=== PATIENT | male | born 1945 | race Caucasian/White ===

== ENCOUNTER 2020-04-19 16:33 | Outpatient (CLI) | payer SELFPAY | END 2020-04-19 16:34 | disposition EMS.NT | LOC: EMS 16:33 | PROVIDERS: ATTEND Surgery | DX: Z04.1 Encounter for examination and observation following transport accident (principal); R73.09 Other abnormal glucose; R03.0 Elevated blood-pressure reading, without diagnosis of hypertension ==

== ENCOUNTER 2020-05-30 10:13 | Inpatient (IN) | payer OTHER ==
--- NOTE | 2020-05-30 10:52 | XRAY Report ---
PROCEDURE: Chest 1 View X-Ray INDICATIONS: Chest pain TECHNIQUE: One view of the chest was acquired. COMPARISON: FINDINGS: Surgical changes and devices: None. Lungs and pleura: No pleural effusions or pneumothorax. Lungs are abnormal with a mild pulmonary ed petr pattern versus chronic interstitial prominence (no comparison). Mediastinum: Mediastinal contours appear normal. Heart size is normal. Bones and chest wall: No suspicious bony lesions. Overlying soft tissues appear unremarkable. IMPRESSION: Mild interstitial prominence versus mild pulmonary edema, no sign of cardiomegaly. A definite source of chest pain is not seen but it could be cardiogenic in origin with this appearance. Reviewed by: Alvaro Greco MD on 05/30/2020 10:51 AM [facility] Approved by: Alvaro Greco MD on 05/30/2020 10:51 AM [facility] Station ID: [id number]
[2020-05-30 10:56] LABS: BASOPHILS # (AUTO) 0.1 10^3/uL (0.0-0.1); BASOPHILS % (AUTO) 0.3 %; EOSINOPHILS # (AUTO) 0.1 10^3/uL (0.0-0.7); EOSINOPHILS % (AUTO) 0.8 %; HGB - HEMOGLOBIN 10.9 g/dL (14.0-18.0); LYMPHOCYTES # (AUTO) 0.6 10^3/uL (1.5-3.5); LYMPHOCYTES % (AUTO) 4.1 %; MEAN CORPUSCULAR HEMOGLOBIN 29.6 pg (27.0-31.0); MEAN CORPUSCULAR HGB CONC 31.8 g/dL (32.0-36.0); MEAN CORPUSCULAR VOLUME 93.2 fL (80.0-94.0); MONOCYTES # (AUTO) 0.9 10^3/uL (0.0-1.0); MONOCYTES % (AUTO) 6.2 %; NEUTROPHILS # (AUTO) 13.1 10^3/uL (1.5-6.6); NEUTROPHILS % (AUTO) 87.4 %; PLT - PLATELET COUNT 217 10^3/uL (130-450); RED BLOOD COUNT 3.68 10^6/uL (4.70-6.10); RED CELL DISTRIBUTION WIDTH 13.6 % (12.0-15.0)
[2020-05-30 11:05] LABS: ALBUMIN 2.9 g/dL (3.2-5.5); ALBUMIN/GLOBULIN RATIO 0.8 (1.0-2.2); BILIRUBIN,TOTAL 1.7 mg/dL (0.2-1.0); CALCIUM 9.1 mg/dL (8.5-10.3); CREATININE 1.6 mg/dL (0.6-1.2); TOTAL PROTEIN 6.7 g/dL (6.7-8.2)
[2020-05-30 11:17] LABS: VBG PCO2 39.9 mmHg (41-51); VBG PH 7.409 (7.31-7.41); VBG PO2 23.2 mmHg (25-47)
[2020-05-30 11:18] LABS: VBG BASE EXCESS 0.1 mmol/L (-2 - +2); VBG TOTAL CO2 25.9 mmol/L (24-29)
[2020-05-30] MEDS ORDERED: LACTATED RINGERS 1,000 ML IV ONE (11:56)
[2020-05-30 12:14] LABS: BILIRUBIN,URINE NEGATIVE (NEGATIVE); GLUCOSE, URINE (UA) 500 mg/dL (NEGATIVE); KETONES,URINE (UA) NEGATIVE (NEGATIVE); LEUKOCYTE ESTERASE, URINE NEGATIVE (NEGATIVE); NITRITE,URINE NEGATIVE (NEGATIVE); OCCULT BLOOD,URINE TRACE-LYSE (NEGATIVE); PROTEIN,URINE >=300 mg/dL (NEGATIVE); UROBILINOGEN,URINE 4 E.U./dL (NORMAL)
[2020-05-30 12:29] LABS: CLARITY,URINE CLEAR (CLEAR)
[2020-05-30 12:42] LABS: BACTERIA,URINE None Seen /HPF (None Seen); RBC,URINE 0-5 /HPF (0-5); SQUAMOUS EPITHELIAL CELL,UR NONE SEEN (<= Few)
[2020-05-30] MEDS ORDERED: cefTRIAXone 1 GM in SODIUM CHLORIDE 0.9% MINIBAG 100 ML IV STA (12:59)
[2020-05-30] MEDS ORDERED: LACTATED RINGERS IV STA (13:00)
--- NOTE | 2020-05-30 13:04 | ED Physician Documentation ---
History of Present Illness - Stated complaint Stated Complaint: SOA/WEAKNESS - Chief complaint Chief Complaint: General - History obtained from History obtained from: Patient - Additonal information Additional information: 74-year-old man with past medical history of diabetes high blood pressure hyperlipidemia presents with shortness of breath, weakness, myalgia, dry cough, decreased appetite for 1 week after getting the shingles vaccine. He states that he was diagnosed with UTI during that. And took a 5-day course that he stopped yesterday because he was feeling so lightheaded and thought that the antibiotics are causing it.At present he denies fever sore throat chest pain palpitations or leg swelling. Review of Systems Constitutional: reports: Myalgias, Fatigue, Weight Loss. denies: Fever, Chills Respiratory: reports: Dyspnea, Cough GI: denies: Abdominal Pain, Nausea : reports: Frequency PD PAST MEDICAL HISTORY - Past Medical History Past Medical History: Yes Cardiovascular: None, Congestive heart failure, Hypertension, Murmur Respiratory: None Neuro: None Endocrine/Autoimmune: Type 2 diabetes GI: None : None, Benign prostate hypertrophy, Renal insuffiency HEENT: Chronic vision loss Psych: None Musculoskeletal: None Derm: None - Past Surgical History Past Surgical History: No - Present Medications Home Medications: Ambulatory Orders Medication Instructions Recorded Confirmed Amlodipine Besylate [Norvasc] 2.5 mg PO DAILY 05/30/20 05/30/20 Aspirin [Aspirin EC] 81 mg PO DAILY 05/30/20 05/30/20 Atenolol [Tenormin] 100 mg PO DAILY 05/30/20 05/30/20 Atorvastatin Calcium [Lipitor] 80 mg PO QPM 05/30/20 05/30/20 Bupropion HCl [Wellbutrin Xl] 300 mg PO DAILY 05/30/20 05/30/20 Cholecalciferol [Vitamin D3] 50 mcg PO DAILY 05/30/20 05/30/20 Furosemide [Lasix] 20 mg PO DAILY 05/30/20 05/30/20 Gabapentin [Neurontin] 1,200 mg PO QPM 05/30/20 05/30/20 Glipizide 10 mg PO BID 05/30/20 05/30/20 HYDROcod/ACETAM 5/325 [[place] 5/325] 1 tab PO TID 05/30/20 05/30/20 Loratadine [Claritin] 10 mg PO DAILY 05/30/20 05/30/20 Losartan Potassium 25 mg PO DAILY 05/30/20 05/30/20 Multivitamin 1 tab PO DAILY 05/30/20 05/30/20 Sildenafil Citrate [Viagra] 50 mg PO PRN PRN 05/30/20 05/30/20 metFORMIN [Glucophage] 1,000 mg PO BID 05/30/20 05/30/20 - Allergies Allergies/Adverse Reactions: Allergies Allergy/AdvReac Type Severity Reaction Status Date / Time Penicillins Allergy Rash Verified 05/30/20 10:31 - Social History Does the pt smoke?: No Smoking Status: Never smoker Does the pt drink ETOH?: No Does the pt have substance abuse?: No - Immunizations Immunizations are current?: Yes - POLST Patient has POLST: No PD ED PE NORMAL - Vitals Vital signs reviewed: Yes - General General: Alert and oriented X 3 - HEENT HEENT: Atraumatic, PERRL, EOMI - Neck Neck: Supple, no meningeal sign - Cardiac Cardiac: RRR, Other (loud systolic murmur) - Respiratory Respiratory: No respiratory distress, Clear bilaterally - Abdomen Abdomen: Non tender, Non distended - Male Male : Deferred - Rectal Rectal: Deferred - Back Back: No CVA TTP - Derm Derm: Normal color - Extremities Extremities: No deformity - Neuro Neuro: Alert and oriented X 3 - Psych Psych: Normal mood, Normal affect Results - Vitals Vitals: Vital Signs - 24 hr 05/30/20 05/30/20 10:25 12:29 Temperature 36.3 C L Heart Rate 61 58 L Respiratory 22 22 Rate Blood Pressure 111/61 119/90 H O2 Saturation 98 96 Oxygen O2 Source Room air - Labs Labs: Laboratory Tests 05/30/20 05/30/20 05/30/20 10:45 10:45 10:45 WBC 15.0 H RBC 3.68 L Hgb 10.9 L Hct 34.3 L MCV 93.2 MCH 29.6 MCHC 31.8 L RDW 13.6 Plt Count 217 MPV 11.0 Neut # (Auto) 13.1 H Lymph # (Auto) 0.6 L Bledsoe # (Auto) 0.9 Eos # (Auto) 0.1 Baso # (Auto) 0.1 Absolute Nucleated RBC 0.00 Nucleated RBC % 0.0 VBG pH VBG pCO2 VBG pO2 VBG HCO3 VBG Total CO2 VBG O2 Saturation VBG Base Excess Sodium 131 L Potassium 4.1 Chloride 95 L Carbon Dioxide 23 Anion Gap 13.0 BUN 41 H Creatinine 1.6 H Estimated GFR (MDRD) 43 L Glucose 404 H Lactic Acid Calcium 9.1 Total Bilirubin 1.7 H AST 23 ALT 16 Alkaline Phosphatase 77 Troponin I High Sens 49.3 H* Total Protein 6.7 Albumin 2.9 L Globulin 3.8 Albumin/Globulin Ratio 0.8 L Lipase 91 H Urine Color Urine Clarity Urine pH Ur Specific [place] Urine Protein Urine Glucose (UA) Urine Ketones Urine Occult Blood Urine Nitrite Urine Bilirubin Urine Urobilinogen Ur Leukocyte Esterase Urine RBC Urine WBC Ur Squamous Epith Cells Urine Bacteria Ur Microscopic Review Urine Culture Comments Nasal Adenovirus (PCR) Nasal B. parapertussis DNA (PCR) Nasal Coronavir 229E PCR Nasal Coronavir HKU1 PCR Nasal Coronavir NL63 PCR Nasal Coronavir OC43 PCR Nasal Enterovir/Rhinovir PCR Nasal Influenza B PCR Nasal Influenza A PCR Nasal Parainfluen 1 PCR Nasal Parainfluen 2 PCR Nasal Parainfluen 3 PCR Nasal Parainfluen 4 PCR Nasal RSV (PCR) Nasal B.pertussis DNA PCR Nasal C.pneumoniae (PCR) Gian Human Metapneumo PCR Nasal M.pneumoniae (PCR) Nasal SARS-CoV-2 (PCR) 05/30/20 05/30/20 05/30/20 11:11 11:45 11:45 WBC RBC Hgb Hct MCV MCH MCHC RDW Plt Count MPV Neut # (Auto) Lymph # (Auto) Bledsoe # (Auto) Eos # (Auto) Baso # (Auto) Absolute Nucleated RBC Nucleated RBC % VBG pH 7.409 VBG pCO2 39.9 L VBG pO2 23.2 L VBG HCO3 24.7 VBG Total CO2 25.9 VBG O2 Saturation 45.1 L VBG Base Excess 0.1 Sodium Potassium Chloride Carbon Dioxide Anion Gap BUN Creatinine Estimated GFR (MDRD) Glucose Lactic Acid Calcium Total Bilirubin AST ALT Alkaline Phosphatase Troponin I High Sens Total Protein Albumin Globulin Albumin/Globulin Ratio Lipase Urine Color YELLOW Urine Clarity CLEAR Urine pH 6.0 Ur Specific [place] 1.020 Urine Protein >=300 H Urine Glucose (UA) 500 H Urine Ketones NEGATIVE Urine Occult Blood TRACE-LYSE Urine Nitrite NEGATIVE Urine Bilirubin NEGATIVE Urine Urobilinogen 4 H Ur Leukocyte Esterase NEGATIVE Urine RBC 0-5 Urine WBC 6-10 H Ur Squamous Epith Cells NONE SEEN Urine Bacteria None Seen Ur Microscopic Review INDICATED Urine Culture Comments INDICATED Nasal Adenovirus (PCR) NOT DETECTED Nasal B. parapertussis DNA (PCR) NOT DETECTED Nasal Coronavir 229E PCR NOT DETECTED Nasal Coronavir HKU1 PCR NOT DETECTED Nasal Coronavir NL63 PCR NOT DETECTED Nasal Coronavir OC43 PCR NOT DETECTED Nasal Enterovir/Rhinovir PCR NOT DETECTED Nasal Influenza B PCR NOT DETECTED Nasal Influenza A PCR NOT DETECTED Nasal Parainfluen 1 PCR NOT DETECTED Nasal Parainfluen 2 PCR NOT DETECTED Nasal Parainfluen 3 PCR NOT DETECTED Nasal Parainfluen 4 PCR NOT DETECTED Nasal RSV (PCR) NOT DETECTED Nasal B.pertussis DNA PCR NOT DETECTED Nasal C.pneumoniae (PCR) NOT DETECTED Gian Human Metapneumo PCR NOT DETECTED Nasal M.pneumoniae (PCR) NOT DETECTED Nasal SARS-CoV-2 (PCR) NOT DETECTED 05/30/20 13:31 WBC RBC Hgb Hct MCV MCH MCHC RDW Plt Count MPV Neut # (Auto) Lymph # (Auto) Bledso[place] # (Auto) Eos # (Auto) Baso # (Auto) Absolute Nucleated RBC Nucleated RBC % VBG pH VBG pCO2 VBG pO2 VBG HCO3 VBG Total CO2 VBG O2 Saturation VBG Base Excess Sodium Potassium Chloride Carbon Dioxide Anion Gap BUN Creatinine Estimated GFR (MDRD) Glucose Lactic Acid 1.6 Calcium Total Bilirubin AST ALT Alkaline Phosphatase Troponin I High Sens Total Protein Albumin Globulin Albumin/Globulin Ratio Lipase Urine Color Urine Clarity Urine pH Ur Specific [place] Urine Protein Urine Glucose (UA) Urine Ketones Urine Occult Blood Urine Nitrite Urine Bilirubin Urine Urobilinogen Ur Leukocyte Esterase Urine RBC Urine WBC Ur Squamous Epith Cells Urine Bacteria Ur Microscopic Review Urine Culture Comments Nasal Adenovirus (PCR) Nasal B. parapertussis DNA (PCR) Nasal Coronavir 229E PCR Nasal Coronavir HKU1 PCR Nasal Coronavir NL63 PCR Nasal Coronavir OC43 PCR Nasal Enterovir/Rhinovir PCR Nasal Influenza B PCR Nasal Influenza A PCR Nasal Parainfluen 1 PCR Nasal Parainfluen 2 PCR Nasal Parainfluen 3 PCR Nasal Parainfluen 4 PCR Nasal RSV (PCR) Nasal B.pertussis DNA PCR Nasal C.pneumoniae (PCR) Gian Human Metapneumo PCR Nasal M.pneumoniae (PCR) Nasal SARS-CoV-2 (PCR) PD MEDICAL DECISION MAKING - ED course Complexity details: reviewed results, d/w patient, d/w technology consultant ED course: 74-year-old man presents with multiple nonspecific symptoms status post treatment for UTI this week. He is mildly tachypneic with an elevated white count. Sepsis time of onset was upon receipt of urine specimen when source was identified. Patient was treated for sepsis/UTI refractory to outpatient antibiotics with AKIdiscussed with hospitalist who will admit patient for further evaluation. Departure - Departure Disposition: [facility] DC/Xfer Clinical Impression: Sepsis, Urinary tract infection, MARCELA (acute kidney injury), Elevated troponin, Heart murmur, Dizziness Condition: Stable Discharge Date/Time: 05/30/20 15:05
[2020-05-30 13:05] LABS: C. PNEUMONIAE- RESP PCR PANEL NOT DETECTED
[2020-05-30] MEDS ORDERED: SODIUM CHLORIDE FLUSH 0.9% 10 ML SYRINGE IVP PRN (14:20)
[2020-05-30] MEDS ORDERED: ONDANSETRON 4 MG/2 ML VIAL IVP PRN (14:20)
[2020-05-30] MEDS ORDERED: ACETAMINOPHEN 325 MG TABLET PO PRN (14:20)
--- NOTE | 2020-05-30 14:28 | HISTORY & PHYSICAL EXAMINATION ---
Chief Complaint - Chief Complaint Chief Complaint: SOB History of Present Illness - Admitted From Admitted From:: ER - History Obtained From Records Reviewed: [facility] History obtained from: pt Exam Limitations: no - History of Present Illness HPI Comment/Other: This is a 74-years old male with a past medical history of CHF, hypertension, heart murmur, diabetic 2, BPH, CKD, chronic vision loss, present ER complain of increased weakness, chest pain and urination burning sensation. Patient reported he went to see his PCP in [place], the [place] physician called patient go to the hospital. Patient reported he still feel some urination burning sensation even after the treated with antibiotics for his UTI.Patient also report he feel chest pressure, and feel shortness of breathing. Pt report after having a shingles shot about one week ago, you felt weakness, loss of appetite, loss of strength in the home and laying in the bed not much drinking and eating. He denies fever, chill, Abdominal pain, nausea, vomiting, diarrhea. Routine laboratory tests that show patient had elevated WBC at 15, elevated troponin 49, Repeat troponin 44, Creatinine 1.6, Sodium 131, Glucose is over 400. Chest x-ray show mild interstitial prominence versus mild pulmonary edema and no sign of cardiomegaly. Discussed the care goal with the patient, patient requested full code History - Past Medical History Cardiovascular: reports: None, Congestive heart failure, Hypertension, Murmur Respiratory: reports: None Neuro: reports: None Endocrine/Autoimmune: reports: Type 2 diabetes GI: reports: None : reports: None, Benign prostate hypertrophy, Renal insuffiency HEENT: reports: Chronic vision loss Psych: reports: None Musculoskeletal: reports: None Derm: reports: None MRSA Hx?: No - Family & Social History Family History: Mother: , Father: Family History Comment/Other: Patient reported his father at age 82 from cancer. Her mother at age 97 from heart complications. Social History Notes: He is living with his at [place], he denies cigarette smoking, alcohol and drug binge - POLST Patient has POLST: No Meds/Allgy - Home Medications Home Medications: Ambulatory Orders Medication Instructions Recorded Confirmed Amlodipine Besylate [Norvasc] 2.5 mg PO DAILY 05/30/20 05/30/20 Aspirin [Aspirin EC] 81 mg PO DAILY 05/30/20 05/30/20 Atenolol [Tenormin] 100 mg PO DAILY 05/30/20 05/30/20 Atorvastatin Calcium [Lipitor] 80 mg PO QPM 05/30/20 05/30/20 Bupropion HCl [Wellbutrin Xl] 300 mg PO DAILY 05/30/20 05/30/20 Cholecalciferol [Vitamin D3] 50 mcg PO DAILY 05/30/20 05/30/20 Furosemide [Lasix] 20 mg PO DAILY 05/30/20 05/30/20 Gabapentin [Neurontin] 1,200 mg PO QPM 05/30/20 05/30/20 Glipizide 10 mg PO BID 05/30/20 05/30/20 HYDROcod/ACETAM 5/325 [[place] 5/325] 1 tab PO TID 05/30/20 05/30/20 Loratadine [Claritin] 10 mg PO DAILY 05/30/20 05/30/20 Losartan Potassium 25 mg PO DAILY 05/30/20 05/30/20 Multivitamin 1 tab PO DAILY 05/30/20 05/30/20 Sildenafil Citrate [Viagra] 50 mg PO PRN PRN 05/30/20 05/30/20 metFORMIN [Glucophage] 1,000 mg PO BID 05/30/20 05/30/20 - Allergies Allergies/Adverse Reactions: Allergies Allergy/AdvReac Type Severity Reaction Status Date / Time Penicillins Allergy Rash Verified 05/30/20 10:31 Review of Systems - Constitutional Constitutional: reports: Fatigue, Weakness, Poor appetite. denies: Fever, Ch ills, Malaise, Diaphoresis, Night sweats - Eyes Eyes: denies: Pain, Blurred vision, Field loss, Vision loss, Dipolpia - Ears, Nose & Throat Ears, Nose & Throat: denies: Ear pain, Vertigo, Nosebleeds, Sore throat, Bleeding gums - Cardiovascular Cariovascular: reports: Chest pain, Decr. exercise tolerance. denies: Irregular heart rate, Palpitations, Edema, Lightheadedness, Syncope, Exertional dyspnea - Respiratory Respiratory: reports: SOB with exertion. denies: Cough, Sputum production, Wheezing, Snoring, Hemoptysis, Orthopnea, SOB at rest - Gastrointestinal Gastrointestinal: denies: Abdominal pain, Diarrhea, Rectal bleeding, Black stools, Bloody stools, Nausea, Vomiting, [place] blood emesis - Genitourinary Genitourinary: reports: Dysuria, Urgency, Incontinence. denies: Hematuria, Flank pain - Musculoskeletal Musculoskeletal: denies: Muscle pain, Muscle aches, Limited range of motion - Integumentary Integumentary: denies: Rash, Lesions, Lumps - Neurological Neurological: reports: General weakness. denies: Focal weakness, Headache, Dizziness, Numbness, Memory problems, Pre-existing deficit, Abnormal gait, Seizures, Incoordination, Slurred speech - Psychiatric Psychiatric: denies: Depression, Suicidal, Delusions, Hallucinations, Homicidal - Endocrine Endocrine: denies: Polyuria, Polydypsia - Hematologic/Lymphatic Hematologic/Lymphatic: denies: Anemia, Lymphadenopathy Exam - Vital Signs Vital Signs: Vital Signs x48h Temp Pulse Resp BP Pulse Ox 05/30/20 12:29 58 L 22 119/90 H 96 05/30/20 10:25 36.3 C L 61 22 111/61 98 - Physical Exam General Appearance: positive: No acute distress, Alert. negative: Lethargic Eyes Bilateral: positive: Normal inspection, PERRL, No lid inflammation ENT: positive: ENT inspection nml, No signs of dehydration. negative: Purulent nasal drainage Neck: positive: Nml inspection, Thyroid nml, Trachea midline. negative: Thyromegaly, Tracheal deviation Respiratory: positive: Chest non-tender, No respiratory distress, Breath sounds nml. negative: Wheezes, Rales, Rhonchi Cardiovascular: positive: Regular rate & rhythm, Systolic murmur, Diastolic murmur. negative: No murmur, Tachycardia, Bradycardia Peripheral Pulses: positive: 2+ Abdomen: positive: Non-tender, Nml bowel sounds, No distention. negative: Tenderness, Guarding, Rebound Back: positive: Nml inspection Skin: positive: Color nml, Warm, Dry. negative: Cyanosis, Diaphoresis, Pallor Extremities: positive: Non-tender, Full ROM, Nml appearance. negative: Calf tenderness Neurologic/Psychiatric: positive: Oriented x3, Motor nml, Sensation nml, Mood/affect nml. negative: Weakness, Sensory loss, Facial droop, Slurred/abnml speech, Depressed mood/affect Conclusion/Plan - Problem List (1) Chest pressure Conclusion/Plan: Patient reported chest pressure, shortness of breathing, slightly elevated tr oponin with repeated, but EKG show ST depression at V4, V5, V6, I and III. we do not have pt previous EKG compare. Plan: Aspirin, resume home Lipitor, Atenolol. ECHO study, and stress test on tomorrow. tele, repeat EKG on tomorrow, continue check troponin. (2) Heart murmur Conclusion/Plan: Patient had aloud systolic and diastolic murmur, patient reported he had no continuous still operator tp be seen before. We will have echo for patient, will follow up, Continue telemetry and vital signs monitor patient closely (3) UTI (urinary tract infection) Conclusion/Plan: Patient reported he was treated with UTI for few days but he still complain irritable urinary burning sensation, and urgency and urine hesitancy, and Difficulty urination. ER already treated with Rocephin, will continue, will continue to follow urine culture, start with Flomax (4) MARCELA (acute kidney injury) Conclusion/Plan: Patient reported he does not know he have chronic kidney disease, today's creatinine is 1.6, clinically he show dehydration, Patient also reported he did not drink or eating much recently. we will give patient IVF hydration, follow-up with veterinarian laboratory animal care (5) Diabetes Conclusion/Plan: Patient Glucose level was over 400 in the ER, has history of diabetic, patient did not take insulin at home, will start with sliding scale, follow-up check A1c, continue hypoglycemia protocol (6) HTN (hypertension) Conclusion/Plan: Patient take amlodipine, losartan and Atenolol in the home, we resume his home Atenolol now, We will closely monitor patient blood vital signs, and resume other blood pressure medicine as needed (7) Hyponatremia Conclusion/Plan: Patient sodium is 131, Patient did not drink or eating much recently. it is likely hypovelmic hyponatremia, ER already give patient one liter of normal saline, will continue gently hydration for pt, continue lab monitor. - Lab Results Fish Bones: 05/30/20 10:45 05/30/20 10:45 Core Measures - Anticipated LOS I expect patient to be DC'd or transferred within 96 hours.: Yes - DVT/VTE - Prophylaxis VTE/DVT Device ordered at admit?: Yes VTE/DVT Prophylaxis med ordered at admit?: Yes
--- NOTE | 2020-05-30 16:05 | PHARMACY PROGRESS NOTE ---
- Best Possible Medication History Admit Date and Time: 05/30/20 1420 Processed by: Pharmacy Medication History completed: Yes Patient Interview: Completed Secondary Source(s): Written medication list (PATIENT INTERVIEWED BY PHARMACY. PATIENT PROVIDED PARTIAL LIST OF MEDICATIONS. PATIENT FILLS MEDICATIONS AT [place]. [place] CALLED AND CONFIRMED HOME MEDICATIONS ), Physician records, Pharmacy records As the person ultimately responsible for medication therapy, providers are able to order a medication from an existing home medication list in [facility] via the "Reconcile Routine" prior to Confirmation of that medication by learning support aide. Such practice is discouraged except when the physician, in their clinical judgment, deems that a medical need exists for a medication without regard to previous use.
[2020-05-30] MEDS: HYDROcod/ACETAM 5/325 MG TABLET PO SCH ×3 (16:45→21:13)
[2020-05-30] MEDS: INSULIN ASPART 300 UNIT/3 ML PEN SUBQ SCH ×2 (16:45→21:17)
[2020-05-30] MEDS: SODIUM CHLORIDE FLUSH 0.9% 10 ML SYRINGE IVP SCH (16:46)
[2020-05-30] MEDS ORDERED: ASPIRIN 325 MG TABLET PO STA (16:54)
[2020-05-30] MEDS ORDERED: ASPIRIN EC 81 MG TABLET PO SCH (16:54)
[2020-05-30] MEDS: SODIUM CHLORIDE 0.9% 1,000 ML IV SCH (17:57)
[2020-05-30] MEDS ORDERED: INSULIN GLARGINE 300 UNIT/3 ML PEN SUBQ SCH (21:00)
[2020-05-30] MEDS: GABAPENTIN 400 MG CAPSULE PO SCH (21:11)
[2020-05-30] MEDS: ATORVASTATIN 40 MG TABLET PO SCH (21:11)
[2020-05-30] MEDS: HEPARIN 5,000 UNIT/ML VIAL SUBQ SCH (21:15)
[2020-05-30] MEDS ORDERED: BENZOCAINE/MENTHOL LOZENGE MM PRN (23:43)
[2020-05-31] MEDS: SODIUM CHLORIDE FLUSH 0.9% 10 ML SYRINGE IVP SCH ×3 (05:28→17:00)
[2020-05-31 05:54] LABS: BASOPHILS # (AUTO) 0.1 10^3/uL (0.0-0.1); BASOPHILS % (AUTO) 0.5 %; EOSINOPHILS # (AUTO) 0.4 10^3/uL (0.0-0.7); EOSINOPHILS % (AUTO) 3.4 %; HGB - HEMOGLOBIN 10.1 g/dL (14.0-18.0); LYMPHOCYTES % (AUTO) 9.3 %; MEAN CORPUSCULAR HEMOGLOBIN 29.2 pg (27.0-31.0); MEAN CORPUSCULAR VOLUME 94.2 fL (80.0-94.0); MEAN PLATELET VOLUME 11.4 fL (7.4-11.4); MONOCYTES # (AUTO) 0.7 10^3/uL (0.0-1.0); MONOCYTES % (AUTO) 6.9 %; NEUTROPHILS # (AUTO) 8.4 10^3/uL (1.5-6.6); PLT - PLATELET COUNT 202 10^3/uL (130-450); RED BLOOD COUNT 3.46 10^6/uL (4.70-6.10); RED CELL DISTRIBUTION WIDTH 13.4 % (12.0-15.0); WHITE BLOOD COUNT 10.7 x10^3/uL (4.8-10.8)
[2020-05-31] MEDS: PANTOPRAZOLE 40 MG TABLET PO SCH (06:00)
[2020-05-31] MEDS: SODIUM CHLORIDE 0.9% 1,000 ML IV SCH (06:00)
[2020-05-31] MEDS: HYDROcod/ACETAM 5/325 MG TABLET PO SCH ×3 (06:00→21:04)
[2020-05-31 06:10] LABS: ALBUMIN 2.7 g/dL (3.2-5.5); ALBUMIN/GLOBULIN RATIO 0.8 (1.0-2.2); BILIRUBIN,TOTAL 1.4 mg/dL (0.2-1.0); CALCIUM 8.7 mg/dL (8.5-10.3); CREATININE 1.5 mg/dL (0.6-1.2); MAGNESIUM 1.8 mg/dL (1.7-2.8); TOTAL PROTEIN 6.1 g/dL (6.7-8.2)
[2020-05-31 06:14] LABS: CHOL/HDL RATIO 6.2 (<5.0); CHOLESTEROL 99 mg/dL; HDL CHOLESTEROL 16 mg/dL; LDL CHOLESTEROL,CALCULATED 55 mg/dL; LDL/HDL RATIO 3.4 (<3.6); VLDL CHOLESTEROL 28 mg/dL
[2020-05-31] MEDS ORDERED: INSULIN ASPART 300 UNIT/3 ML PEN SUBQ SCH (08:00)
[2020-05-31] MEDS ORDERED: ASPIRIN EC 81 MG TABLET PO SCH (09:00)
[2020-05-31] MEDS: buPROPion XL 150 MG TABLET PO SCH (10:30)
[2020-05-31] MEDS: atenoloL 25 MG TABLET PO SCH (10:30)
[2020-05-31] MEDS: INSULIN GLARGINE 300 UNIT/3 ML PEN SUBQ SCH ×2 (10:30→21:05)
[2020-05-31] MEDS: ASPIRIN EC 81 MG TABLET PO SCH (10:30)
[2020-05-31] MEDS: cefTRIAXone 1 GM in SODIUM CHLORIDE 0.9% MINIBAG 100 ML IV SCH (10:31)
[2020-05-31] MEDS: TAMSULOSIN 0.4 MG CAPSULE PO SCH (10:31)
[2020-05-31] MEDS: HEPARIN 5,000 UNIT/ML VIAL SUBQ SCH ×2 (10:35→21:05)
[2020-05-31] MEDS ORDERED: INSULIN ASPART 300 UNIT/3 ML PEN SUBQ ONE ×2 (11:03→17:05)
--- NOTE | 2020-05-31 11:43 | XRAY Report ---
PROCEDURE: Chest 1 View X-Ray INDICATIONS: sob TECHNIQUE: One view of the chest was acquired. COMPARISON: None FINDINGS: Surgical changes and devices: None. Lungs and pleura: Diffuse bilateral and perihilar increased interstitial opacities are seen, increas ed compared to the prior study on 05/30/2020. No focal consolidation or mass. No pleural effusions or pneumothorax. Lungs are clear. Mediastinum: Mediastinal contours appear normal. Heart size is normal. Bones and chest wall: No suspicious bony lesions. Overlying soft tissues appear unremarkable. IMPRESSION: Diffuse bilateral and perihilar increased interstitial opacities, increased compared to 05/30/2020. Wh ile this could be due to differences in technique, consider pulmonary edema or a diffuse infectious p rocess. Reviewed by: Zacarias Greenberg on 05/31/2020 11:41 AM PST Approved by: Zacarias Greenberg on 05/31/2020 11:41 AM PST Station ID: [id number]
[2020-05-31] MEDS: INSULIN ASPART 300 UNIT/3 ML PEN SUBQ SCH ×3 (14:17→21:06)
--- NOTE | 2020-05-31 14:23 | PROVIDER PROGRESS NOTE ---
Assessment/Plan - Problem List (1) Chest pressure Assessment/Plan: 05/31 Patient reported he feel better today, denies chest pain or chest pressure. his troponin treaded down from 49 to 36. unfortunately our hospital device can not do stress on today, plan do on tomorrow. continue Aspirin, resume home Lipi tor, Atenolol. Patient reported chest pressure, shortness of breathing, slightly elevated troponin with repeated, but EKG show ST depression at V4, V5, V6, I and III. we do not have pt previous EKG compare. Plan: Aspirin, resume home Lipitor, Atenolol. ECHO study, and stress test on tomorrow. tele, repeat EKG on tomorrow, continue check troponin. (2) Heart murmur Conclusion/Plan: 05/31 ECHO reveals reserved EF with Moderate concentric left ventricular hyp ertrophy, There is moderate to severe aortic sclerosis, aortic valve area could not be calculated due to left ventricular outflow tract obstruction. Moderate mitral regurgitation, Severe abnormal right heart pressure, RVSP at the rest is 104 mmHg. Patient had aloud systolic and diastolic murmur, patient reported he had no virtualization consultant tp be seen before. We will have echo for patient, will follow up, Continue telemetry and vital signs monitor patient closely (3)[facility] ECHO reveals reserved EF with Moderate concentric left ventricular hypertrophy, left Ventricular outflow track gradient without valsalva Max 56mmHG. Update recommend beta ileana and verapamil, calcium channel ileana. will continue home Metoprolol, continue vial and tele monitor. (4)pulmonary hypertension ECHO reveal RVSP 104mmHG, severe Pulmonary hypertension, resume home Viagra, followup with his virtualization consultant (5) UTI (urinary tract infection) Conclusion/Plan: Patient reported he was treated with UTI for few days but he still complain irritable urinary burning sensation, and urgency and urine hesitancy, and Difficulty urination. ER already treated with Rocephin, will continue, will continue to follow urine culture, start with Flomax (6) CKD Conclusion/Plan: 05/31 stable, creatinine is 1.5 today Patient reported he does not know he have chronic kidney disease, today's creatinine is 1.6, clinically he show dehydration, Patient also reported he did not drink or eating much recently. we will give patient IVF hydration, follow-up with dental laboratory technician apprentice (7) Diabetes uncontrolled Conclusion/Plan: 05/31 Patient's A1c is 11, patient did not take insulin in the home, we will increase his Lantus and a sliding scale. when patient is d/c, he is likely needed with insulin. Patient Glucose level was over 400 in the ER, has history of diabetic, patient did not take insulin at home, will start with sliding scale, follow-up check A1c, continue hypoglycemia protocol (8) HTN (hypertension) Conclusion/Plan: Patient take amlodipine, losartan and Atenolol in the home, we resume his home Atenolol now, We will closely monitor patient blood vital signs, and resume other blood pressure medicine as needed (9) Hyponatremia Conclusion/Plan: 05/31 resolved. Patient sodium is 131, Patient did not drink or eating much recently. it is likely hypovelmic hyponatremia, ER already give patient one liter of normal saline, will continue gently hydration for pt, continue lab monitor. - Current Meds Current Meds: Current Medications Generic Name Dose Route Start Last Admin Trade Name Freq PRN Reason Stop Dose Admin Hydrocodone Bitart/Acetaminophen 1 tab 05/30/20 17:00 05/31/20 06:00 Hydrocod/Acetam 5/325 Mg Tablet PO 1 tab TID MILA Administration Aspirin 81 mg 05/31/20 09:00 05/31/20 10:30 Aspirin Ec 81 Mg Tablet PO 81 mg DAILY MILA Administration Atenolol 100 mg 05/31/20 09:00 05/31/20 10:30 Atenolol 25 Mg Tablet PO 100 mg DAILY MILA Administration Atorvastatin Calcium 80 mg 05/30/20 21:00 05/30/20 21:11 Atorvastatin 40 Mg Tablet PO 80 mg QPM MILA Administration Bupropion HCl 300 mg 05/31/20 09:00 05/31/20 10:30 Bupropion Xl 150 Mg Tablet PO 300 mg DAILY MILA Administration Gabapentin 1,200 mg 05/30/20 21:00 05/30/20 21:11 Gabapentin 400 Mg Capsule PO 1,200 mg QPM MILA Administration Heparin Sodium (Porcine) 5,000 unit 05/30/20 21:00 05/31/20 10:35 Heparin 5,000 Unit/Ml Vial SUBQ 5,000 unit BID MILA Administration Ceftriaxone Sodium 1 gm/ 100 mls @ 200 mls/hr 05/31/20 09:00 05/31/20 11:01 Sodium Chloride IV Infused DAILY MILA Infusion Insulin Aspart 2 - 10 unit 05/31/20 12:00 05/31/20 14:17 Insulin Aspart 300 Unit/3 Ml Pen SUBQ Not Given 0800,1200,1700,2100 MILA Protocol Insulin Glargine 5 unit 05/31/20 08:00 05/31/20 10:30 Insulin Glargine 300 Unit/3 Ml Pen SUBQ 5 unit QDBREAKFAST MILA Administration Pantoprazole Sodium 40 mg 05/31/20 07:00 05/31/20 06:00 Pantoprazole 40 Mg Tablet PO 40 mg QDAC MILA Administration Sodium Chloride 10 ml 05/30/20 17:00 05/31/20 10:31 Sodium Chloride Flush 0.9% 10 Ml Syringe IVP Not Given 0100,0900,1700 MILA Tamsulosin HCl 0.4 mg 05/31/20 09:00 05/31/20 10:31 Tamsulosin 0.4 Mg Capsule PO 0.4 mg DAILY MILA Administration - Lab Result Fish Bone Diagrams: 05/31/20 05:15 05/31/20 05:15 - Additional Planning My Orders: My Active Orders 05/30/20 14:15 Echo Transthoracic Complete [ECHO] Stat 05/30/20 14:20 Activity Orders [RC] Q2HR IO [RC] IOSHIFT Initiate Bowel Care Protocol [RC] .protocol Initiate Line Care Protocol [RC] QSHIFT Initiate Personal Care Protoco [RC] .protocol Telemetry- [RC] Q4HR Vital Signs [RC] Q4HR Acetaminophen [Tylenol] 650 mg PO Q4HR PRN Ondansetron Inj [Zofran Inj] 4 mg IVP Q6HR PRN Sodium Chloride Flush 0.9% [Normal Saline Flush 0.9%] 10 ml IVP PRN PRN Code Status [OTHERS] Routine Condition of Patient [OTHERS] Routine DVT Prophylaxis [OTHERS] Routine 05/30/20 14:23 IV Insert [RC] .ONCE 05/30/20 14:24 SCDs [RC] QSHIFT 05/30/20 16:22 Blood Glucose Checks - Eating [RC] 0800,1200,1700,2100 Initiate Hypoglycemia Protocol [RC] .protocol 05/30/20 16:53 Stress Test Prep [RC] .ONCE 05/30/20 17:00 HYDROcod/ACETAM 5/325 [[place] 5/325] 1 tab PO TID Sodium Chloride Flush 0.9% [Normal Saline Flush 0.9%] 10 ml IVP 0100,0900,1700 05/30/20 21:00 Atorvastatin [Lipitor] 80 mg PO QPM Gabapentin [Neurontin] 1,200 mg PO QPM Heparin 5,000 unit SUBQ BID 05/30/20 23:43 Benzocaine/Menthol [Cepacol] 1 lozenge MM Q2HR PRN 05/31/20 cleaning manager Consult [CONS] Routine 05/31/20 Breakfast Carb-controlled Diet [DIET] 05/31/20 07:00 Pantoprazole [Protonix] 40 mg PO QDAC 05/31/20 08:00 Insulin Glargine [Lantus Solostar] 5 unit SUBQ QDBREAKFAST 05/31/20 09:00 Aspirin EC [Ecotrin] 81 mg PO DAILY Tamsulosin [Flomax] 0.4 mg PO DAILY atenoloL [Tenormin] 100 mg PO DAILY buPROPion [Wellbutrin Xl] 300 mg PO DAILY cefTRIAXone [Rocephin] 1 gm Sodium Chloride 0.9% Minibag [Normal Saline 0.9% Minibag] 100 ml IV DAILY 05/31/20 11:06 Diabetic Education [RC] ONCE 05/31/20 12:00 Insulin Aspart [NovoLOG] 2 - 10 unit SUBQ 0800,1200,1700,2100 05/31/20 13:00 Furosemide [Lasix] 20 mg PO DAILY 05/31/20 21:00 Insulin Glargine [Lantus Solostar] 10 unit SUBQ QPM 06/01/20 00:01 NPO except Meds [DIET] 06/01/20 05:00 BNP - B-NATRIURETIC PEPTIDE [IAI] DAILYLAB CBC - COMP BLD CT W/AUTO DIFF [HEME] DAILYLAB CMP [COMPREHENSIVE METABOLIC PANEL] [CHEM] DAILYLAB 06/01/20 09:00 Stress Test [Myocardial Perfusion STR/RST] [NM] Routine 06/02/20 05:00 BNP - B-NATRIURETIC PEPTIDE [IAI] DAILYLAB CBC - COMP BLD CT W/AUTO DIFF [HEME] DAILYLAB CMP [COMPREHENSIVE METABOLIC PANEL] [CHEM] DAILYLAB 06/03/20 05:00 BNP - B-NATRIURETIC PEPTIDE [IAI] DAILYLAB CBC - COMP BLD CT W/AUTO DIFF [HEME] DAILYLAB CMP [COMPREHENSIVE METABOLIC PANEL] [CHEM] DAILYLAB 06/04/20 05:00 BNP - B-NATRIURETIC PEPTIDE [IAI] DAILYLAB CBC - COMP BLD CT W/AUTO DIFF [HEME] DAILYLAB CMP [COMPREHENSIVE METABOLIC PANEL] [CHEM] DAILYLAB 06/05/20 05:00 BNP - B-NATRIURETIC PEPTIDE [IAI] DAILYLAB Subjective - Subjective Patient Reports: Feeling Better Objective Vital Signs: Vital Signs - 24 hr 05/30/20 05/30/20 05/30/20 15:23 15:35 20:06 Temperature 36.9 C 36.7 C 37.5 C Heart Rate [ 59 L 60 74 Brachial] Respiratory 17 18 16 Rate Blood Pressure 96/45 L 120/55 L 111/67 [Left Brachial artery] O2 Saturation 97 99 94 05/30/20 05/31/20 05/31/20 23:35 04:18 07:40 Temperature 36.9 C 37.5 C 37.7 C Heart Rate [ 72 67 73 Brachial] Respiratory 18 18 18 Rate Blood Pressure 105/47 L 116/55 L 100/42 L [Left Brachial artery] O2 Saturation 94 92 92 05/31/20 11:36 Temperature 36.3 C L Heart Rate [ 73 Brachial] Respiratory 18 Rate Blood Pressure 110/48 L [Left Brachial artery] O2 Saturation 94 Oxygen O2 Source Room air I&O (Last 24 Hrs): Intake and Output Totals x24h 05/29/20 05/30/20 05/31/20 23:59 23:59 23:59 Intake Total 1220 3380 Balance 1220 3380 General: Alert, Oriented x3, No acute distress HEENT: Atraumatic Neck: Supple Lymphatic: no adenopathy Neuro: Alert, Non Focal, Oriented Times 3 Cardiovascular: Normal S1, Normal S2 Respiratory: Chest non-tender, No respiratory distress Abdomen: Normal bowel sounds, Soft, No tenderness Extremities: Normal pulses Skin: No breakdown - Results Results: Laboratory Results WBC 10.7 x10^3/uL (4.8-10.8) 05/31/20 05:15 RBC 3.46 10^6/uL (4.70-6.10) L 05/31/20 05:15 Hgb 10.1 g/dL (14.0-18.0) L 05/31/20 05:15 Hct 32.6 % (42.0-52.0) L 05/31/20 05:15 MCV 94.2 fL (80.0-94.0) H 05/31/20 05:15 MCH 29.2 pg (27.0-31.0) 05/31/20 05:15 MCHC 31.0 g/dL (32.0-36.0) L 05/31/20 05:15 RDW 13.4 % (12.0-15.0) 05/31/20 05:15 Plt Count 202 10^3/uL (130-450) 05/31/20 05:15 MPV 11.4 fL (7.4-11.4) 05/31/20 05:15 Neut # (Auto) 8.4 10^3/uL (1.5-6.6) H 05/31/20 05:15 Lymph # (Auto) 1.0 10^3/uL (1.5-3.5) L 05/31/20 05:15 [place] # (Auto) 0.7 10^3/uL (0.0-1.0) 05/31/20 05:15 Eos # (Auto) 0.4 10^3/uL (0.0-0.7) 05/31/20 05:15 Baso # (Auto) 0.1 10^3/uL (0.0-0.1) 05/31/20 05:15 Absolute Nucleated RBC 0.00 x10^3/uL 05/31/20 05:15 Nucleated RBC % 0.0 /100WBC 05/31/20 05:15 D-Dimer 468.0 ng/mL (200.0-255.0) H 05/30/20 14:44 VBG pH 7.409 (7.31-7.41) 05/30/20 11:11 VBG pCO2 39.9 mmHg (41-51) L 05/30/20 11:11 VBG pO2 23.2 mmHg (25-47) L 05/30/20 11:11 VBG HCO3 24.7 mmol/L (23-28) 05/30/20 11:11 VBG Total CO2 25.9 mmol/L (24-29) 05/30/20 11:11 VBG O2 Saturation 45.1 % (60-80) L 05/30/20 11:11 VBG Base Excess 0.1 mmol/L (-2 - +2) 05/30/20 11:11 Sodium 138 mmol/L (135-145) 05/31/20 05:15 Potassium 4.1 mmol/L (3.5-5.0) 05/31/20 05:15 Chloride 104 mmol/L (101-111) 05/31/20 05:15 Carbon Dioxide 23 mmol/L (21-32) 05/31/20 05:15 Anion Gap 11.0 (6-13) 05/31/20 05:15 BUN 43 mg/dL (6-20) H 05/31/20 05:15 Creatinine 1.5 mg/dL (0.6-1.2) H 05/31/20 05:15 Estimated GFR (MDRD) 46 (>89) L 05/31/20 05:15 Glucose 206 mg/dL (70-100) H 05/31/20 05:15 POC Whole Bld Glucose 338 mg/dL (70 - 100) H 05/31/20 10:58 Estimat Average Glucose 269 mg/dL (70-100) H 05/31/20 05:15 Hemoglobin A1c % 11.0 % (4.27-6.07) H 05/31/20 05:15 Lactic Acid 1.6 mmol/L (0.5-2.2) 05/30/20 13:31 Calcium 8.7 mg/dL (8.5-10.3) 05/31/20 05:15 Magnesium 1.8 mg/dL (1.7-2.8) 05/31/20 05:15 Total Bilirubin 1.4 mg/dL (0.2-1.0) H 05/31/20 05:15 AST 34 IU/L (10-42) 05/31/20 05:15 ALT 23 IU/L (10-60) 05/31/20 05:15 Alkaline Phosphatase 93 IU/L (42-121) 05/31/20 05:15 Troponin I High Sens 36.2 ng/L (2.3-19.7) H* 05/30/20 19:59 B-Natriuretic Peptide 1045 pg/mL (5-100) H 05/31/20 05:15 Total Protein 6.1 g/dL (6.7-8.2) L 05/31/20 05:15 Albumin 2.7 g/dL (3.2-5.5) L 05/31/20 05:15 Globulin 3.4 g/dL (2.1-4.2) 05/31/20 05:15 Albumin/Globulin Ratio 0.8 (1.0-2.2) L 05/31/20 05:15 Triglycerides 142 mg/dL (-149) 05/31/20 05:15 Cholesterol 99 mg/dL (-199) 05/31/20 05:15 LDL Cholesterol, Calc 55 mg/dL (-129) 05/31/20 05:15 VLDL Cholesterol 28 mg/dL 05/31/20 05:15 HDL Cholesterol 16 mg/dL (60-) L 05/31/20 05:15 LDL/HDL Ratio 3.4 (<3.6) 05/31/20 05:15 Cholesterol/HDL Ratio 6.2 (<5.0) 05/31/20 05:15 Lipase 91 U/L (22-51) H 05/30/20 10:45 Urine Color YELLOW 05/30/20 11:45 Urine Clarity CLEAR (CLEAR) 05/30/20 11:45 Urine pH 6.0 PH (5.0-7.5) 05/30/20 11:45 Ur Specific [place] 1.020 (1.002-1.030) 05/30/20 11:45 Urine Protein >=300 mg/dL (NEGATIVE) H 05/30/20 11:45 Urine Glucose (UA) 500 mg/dL (NEGATIVE) H 05/30/20 11:45 Urine Ketones NEGATIVE mg/dL (NEGATIVE) 05/30/20 11:45 Urine Occult Blood TRACE-LYSE (NEGATIVE) 05/30/20 11:45 Urine Nitrite NEGATIVE (NEGATIVE) 05/30/20 11:45 Urine Bilirubin NEGATIVE (NEGATIVE) 05/30/20 11:45 Urine Urobilinogen 4 E.U./dL (NORMAL) H 05/30/20 11:45 Ur Leukocyte Esterase NEGATIVE (NEGATIVE) 05/30/20 11:45 Urine RBC 0-5 /HPF (0-5) 05/30/20 11:45 Urine WBC 6-10 /HPF (0-3) H 05/30/20 11:45 Ur Squamous Epith Cells NONE SEEN (<= Few) 05/30/20 11:45 Urine Bacteria None Seen /HPF (None Seen) 05/30/20 11:45 Ur Microscopic Review INDICATED 05/30/20 11:45 Urine Culture Comments INDICATED 05/30/20 11:45 Nasal Adenovirus (PCR) NOT DETECTED 05/30/20 11:45 Nasal B. parapertussis DNA (PCR) NOT DETECTED 05/30/20 11:45 Nasal Coronavir 229E PCR NOT DETECTED 05/30/20 11:45 Nasal Coronavir HKU1 PCR NOT DETECTED 05/30/20 11:45 Nasal Coronavir NL63 PCR NOT DETECTED 05/30/20 11:45 Nasal Coronavir OC43 PCR NOT DETECTED 05/30/20 11:45 Nasal Enterovir/Rhinovir PCR NOT DETECTED 05/30/20 11:45 Nasal Influenza B PCR NOT DETECTED 05/30/20 11:45 Nasal Influenza A PCR NOT DETECTED 05/30/20 11:45 Nasal Parainfluen 1 PCR NOT DETECTED 05/30/20 11:45 Nasal Parainfluen 2 PCR NOT DETECTED 05/30/20 11:45 Nasal Parainfluen 3 PCR NOT DETECTED 05/30/20 11:45 Nasal Parainfluen 4 PCR NOT DETECTED 05/30/20 11:45 Nasal RSV (PCR) NOT DETECTED 05/30/20 11:45 Nasal B.pertussis DNA PCR NOT DETECTED 05/30/20 11:45 Nasal C.pneumoniae (PCR) NOT DETECTED 05/30/20 11:45 Gian Human Metapneumo PCR NOT DETECTED 05/30/20 11:45 Nasal M.pneumoniae (PCR) NOT DETECTED 05/30/20 11:45 Nasal SARS-CoV-2 (PCR) NOT DETECTED 05/30/20 11:45 ABX Reporting Has patient been on IV antibiotics over the past 48 hours?: Yes Current Medications - Current Medications Current Medications: Active Medications Acetaminophen (Acetaminophen 325 Mg Tablet) 650 mg PO Q4HR PRN PRN Reason: Pain 1 to 4 Hydrocodone Bitart/Acetaminophen (Hydrocod/Acetam 5/325 Mg Tablet) 1 tab PO TID [facility] Last Admin: 05/31/20 14:32 Dose: 1 tab Documented by: Aspirin (Aspirin Ec 81 Mg Tablet) 81 mg PO DAILY [facility] Last Admin: 05/31/20 10:30 Dose: 81 mg Documented by: Atenolol (Atenolol 25 Mg Tablet) 100 mg PO DAILY [facility] Last Admin: 05/31/20 10:30 Dose: 100 mg Documented by: Atorvastatin Calcium (Atorvastatin 40 Mg Tablet) 80 mg PO QPM [facility] Last Admin: 05/30/20 21:11 Dose: 80 mg Documented by: Bupropion HCl (Bupropion Xl 150 Mg Tablet) 300 mg PO DAILY [facility] Last Admin: 05/31/20 10:30 Dose: 300 mg Documented by: Furosemide (Furosemide 20 Mg Tablet) 20 mg PO DAILY [facility] Last Admin: 05/31/20 14:32 Dose: 20 mg Documented by: Gabapentin (Gabapentin 400 Mg Capsule) 1,200 mg PO QPM [facility] Last Admin: 05/30/20 21:11 Dose: 1,200 mg Documented by: Heparin Sodium (Porcine) (Heparin 5,000 Unit/Ml Vial) 5,000 unit SUBQ BID [facility] Last Admin: 05/31/20 10:35 Dose: 5,000 unit Documented by: Ceftriaxone Sodium 1 gm/ (Sodium Chloride) 100 mls @ 200 mls/hr IV DAILY [facility] Last Infusion: 05/31/20 11:01 Dose: Infused Documented by: Insulin Aspart (Insulin Aspart 300 Unit/3 Ml Pen) 2 - 10 unit SUBQ 0800,1200,1700,2100 [facility]; Protocol Last Admin: 05/31/20 14:17 Dose: Not Given Documented by: Insulin Glargine (Insulin Glargine 300 Unit/3 Ml Pen) 5 unit SUBQ QDBREAKFAST [facility] Last Admin: 05/31/20 10:30 Dose: 5 unit Documented by: Insulin Glargine (Insulin Glargine 300 Unit/3 Ml Pen) 10 unit SUBQ QPM [facility] Ondansetron HCl (Ondansetron 4 Mg/2 Ml Vial) 4 mg IVP Q6HR PRN PRN Reason: Nausea / Vomiting Pantoprazole Sodium (Pantoprazole 40 Mg Tablet) 40 mg PO QDAC [facility] Last Admin: 05/31/20 06:00 Dose: 40 mg Documented by: Sodium Chloride (Sodium Chloride Flush 0.9% 10 Ml Syringe) 10 ml IVP PRN PRN PRN Reason: NEEDED PER PROVIDER ORDERS Sodium Chloride (Sodium Chloride Flush 0.9% 10 Ml Syringe) 10 ml IVP 0100,0900,1700 [facility] Last Admin: 05/31/20 10:31 Dose: Not Given Documented by: Tamsulosin HCl (Tamsulosin 0.4 Mg Capsule) 0.4 mg PO DAILY [facility] Last Admin: 05/31/20 10:31 Dose: 0.4 mg Documented by: Throat Lozenges (Benzocaine/Menthol Lozenge) 1 lozenge MM Q2HR PRN PRN Reason: Throat pain Amlodipine Besylate [Norvasc] 2.5 mg PO DAILY 05/30/20 Aspirin [Aspirin EC] 81 mg PO DAILY 05/30/20 Atenolol [Tenormin] 100 mg PO DAILY 05/30/20 Atorvastatin Calcium [Lipitor] 80 mg PO QPM 05/30/20 Bupropion HCl [Wellbutrin Xl] 300 mg PO DAILY 05/30/20 Cholecalciferol [Vitamin D3] 50 mcg PO DAILY 05/30/20 Furosemide [Lasix] 20 mg PO DAILY 05/30/20 Gabapentin [Neurontin] 1,200 mg PO QPM 05/30/20 Glipizide 10 mg PO BID 05/30/20 HYDROcod/ACETAM 5/325 [[place] 5/325] 1 tab PO TID 05/30/20 Loratadine [Claritin] 10 mg PO DAILY 05/30/20 Losartan Potassium 25 mg PO DAILY 05/30/20 Multivitamin 1 tab PO DAILY 05/30/20 Sildenafil Citrate [Viagra] 50 mg PO PRN PRN 05/30/20 metFORMIN [Glucophage] 1,000 mg PO BID 05/30/20
[2020-05-31] MEDS ORDERED: SILDENAFIL CITRATE 100 MG PO PRN (14:28)
[2020-05-31] MEDS: FUROSEMIDE 20 MG TABLET PO SCH (14:32)
[2020-05-31] MEDS ORDERED: INSULIN GLARGINE 300 UNIT/3 ML PEN SUBQ SCH (21:00)
[2020-05-31] MEDS: ATORVASTATIN 40 MG TABLET PO SCH (21:04)
[2020-05-31] MEDS: GABAPENTIN 400 MG CAPSULE PO SCH (21:04)
[2020-06-01] MEDS: SODIUM CHLORIDE FLUSH 0.9% 10 ML SYRINGE IVP SCH ×4 (00:44→23:59)
[2020-06-01 04:49] LABS: BASOPHILS # (AUTO) 0.1 10^3/uL (0.0-0.1); BASOPHILS % (AUTO) 0.5 %; EOSINOPHILS # (AUTO) 0.8 10^3/uL (0.0-0.7); EOSINOPHILS % (AUTO) 8.5 %; HGB - HEMOGLOBIN 9.4 g/dL (14.0-18.0); LYMPHOCYTES # (AUTO) 1.3 10^3/uL (1.5-3.5); LYMPHOCYTES % (AUTO) 14.6 %; MEAN CORPUSCULAR HEMOGLOBIN 28.9 pg (27.0-31.0); MEAN CORPUSCULAR HGB CONC 31.2 g/dL (32.0-36.0); MEAN CORPUSCULAR VOLUME 92.6 fL (80.0-94.0); MONOCYTES # (AUTO) 0.7 10^3/uL (0.0-1.0); MONOCYTES % (AUTO) 7.8 %; NEUTROPHILS # (AUTO) 6.1 10^3/uL (1.5-6.6); NEUTROPHILS % (AUTO) 67.1 %; PLT - PLATELET COUNT 174 10^3/uL (130-450); RED BLOOD COUNT 3.25 10^6/uL (4.70-6.10); RED CELL DISTRIBUTION WIDTH 13.3 % (12.0-15.0); WHITE BLOOD COUNT 9.1 x10^3/uL (4.8-10.8)
[2020-06-01 05:04] LABS: ALBUMIN 2.3 g/dL (3.2-5.5); ALBUMIN/GLOBULIN RATIO 0.7 (1.0-2.2); BILIRUBIN,TOTAL 1.1 mg/dL (0.2-1.0); CALCIUM 8.2 mg/dL (8.5-10.3); CREATININE 1.5 mg/dL (0.6-1.2); TOTAL PROTEIN 5.6 g/dL (6.7-8.2)
[2020-06-01] MEDS: PANTOPRAZOLE 40 MG TABLET PO SCH (06:26)
[2020-06-01] MEDS: HYDROcod/ACETAM 5/325 MG TABLET PO SCH ×3 (06:27→21:00)
[2020-06-01] MEDS: INSULIN ASPART 300 UNIT/3 ML PEN SUBQ SCH ×4 (09:21→20:56)
[2020-06-01] MEDS: INSULIN GLARGINE 300 UNIT/3 ML PEN SUBQ SCH ×2 (09:22→20:57)
[2020-06-01] MEDS: atenoloL 25 MG TABLET PO SCH (09:22)
[2020-06-01] MEDS: FUROSEMIDE 20 MG TABLET PO SCH (09:23)
[2020-06-01] MEDS: SACCHAROMYCES BOULARDII 250 MG CAPSULE PO SCH ×2 (09:23→17:04)
[2020-06-01] MEDS: ASPIRIN EC 81 MG TABLET PO SCH (09:24)
[2020-06-01] MEDS: TAMSULOSIN 0.4 MG CAPSULE PO SCH (09:24)
[2020-06-01] MEDS: HEPARIN 5,000 UNIT/ML VIAL SUBQ SCH ×2 (09:24→20:57)
[2020-06-01] MEDS: buPROPion XL 150 MG TABLET PO SCH (09:35)
[2020-06-01] MEDS: cefTRIAXone 1 GM in SODIUM CHLORIDE 0.9% MINIBAG 100 ML IV SCH (09:36)
[2020-06-01] MEDS ORDERED: REGADENOSON 0.4 MG/5 ML SYRINGE IVP ONE ×2 (14:49→15:41)
[2020-06-01] MEDS ORDERED: AMINOPHYLLINE 500 MG/20 ML VIAL ONE (14:50)
--- NOTE | 2020-06-01 17:08 | PROVIDER PROGRESS NOTE ---
Assessment/Plan - Problem List (1) Chest pressure Assessment/Plan: atient report his symptoms is resolved, No chest pain, no chest pressure, no palpation. his stress test is negative. 05/31 Patient reported he feel better today, denies chest pain or chest pressure. his troponin treaded down from 49 to 36. unfortunately our hospital device can not do stress on today, plan do on tomorrow. continue Aspirin, resume home Lipitor, Atenolol. Patient reported chest pressure, shortness of breathing, slightly elevated troponin with repeated, but EKG show ST depression at V4, V5, V6, I and III. we do not have pt previous EKG compare. Plan: Aspirin, resume home Lipitor, Atenolol. ECHO study, and stress test on tomorrow. tele, repeat EKG on tomorrow, continue check troponin. (2) Heart murmur Conclusion/Plan: 05/31 ECHO reveals reserved EF with Moderate concentric left ventricular hypertrophy, There is moderate to severe aortic sclerosis, aortic valve area c ould not be calculated due to left ventricular outflow tract obstruction. Moderate mitral regurgitation, Severe abnormal right heart pressure, RVSP at the rest is 104 mmHg. Patient had aloud systolic and diastolic murmur, patient reported he had no domestic travel consultant tp be seen before. We will have echo for patient, will follow up, Continue telemetry and vital signs monitor patient closely (3)[facility] ECHO reveals reserved EF with Moderate concentric left ventricular hypertrophy, left Ventricular outflow track gradient without valsalva Max 56mmHG. Update recommend beta ileana and verapamil, calcium channel ileana. will continue home Metoprolol, continue vial and tele monitor. (4)pulmonary hypertension ECHO reveal RVSP 104mmHG, severe Pulmonary hypertension, resume home Viagra, followup with his domestic travel consultant (5) UTI (urinary tract infection) Conclusion/Plan: 06/01 UA culture reveals contamination, hold antibiotics now. Patient reported he was treated with UTI for few days but he still complain irritable urinary burning sensation, and urgency and urine hesitancy, and Difficulty urination. ER already treated with Rocephin, will continue, will continue to follow urine culture, (6) CKD Conclusion/Plan: 06/01 stable, creatinine is 1.5 05/31 stable, creatinine is 1.5 today Patient reported he does not know he have chronic kidney disease, today's creatinine is 1.6, clinically he show dehydration, Patient also reported he did not drink or eating much recently. we will give patient IVF hydration, follow-up with dairy and food laboratory assistant (7) Diabetes uncontrolled Conclusion/Plan: 05/31 Patient's A1c is 11, patient did not take insulin in the home, we will increase his Lantus and a sliding scale. when patient is d/c, he is likely needed with insulin. Patient Glucose level was over 400 in the ER, has history of diabetic, patient did not take insulin at home, will start with sliding scale, follow-up check A1c, continue hypoglycemia protocol (8) HTN (hypertension) Conclusion/Plan: Patient take amlodipine, losartan and Atenolol in the home, we resume his home Atenolol now, We will closely monitor patient blood vital signs, and resume other blood pressure medicine as needed (9) Hyponatremia Conclusion/Plan: 05/31 resolved. Patient sodium is 131, Patient did not drink or eating much recently. it is likely hypovelmic hyponatremia, ER already give patient one liter of normal saline, will continue gently hydration for pt, continue lab monitor. (10)BPH 12atient reported his urination has hesitance, frequency, start Flomax - Current Meds Current Meds: Current Medications Generic Name Dose Route Start Last Admin Trade Name Reilly PRN Reason Stop Dose Admin Hydrocodone Bitart/Acetaminophen 1 tab 05/30/20 17:00 06/01/20 15:09 Hydrocod/Acetam 5/325 Mg Tablet PO 1 tab TID MILA Administration Aspirin 81 mg 05/31/20 09:00 06/01/20 09:24 Aspirin Ec 81 Mg Tablet PO 81 mg DAILY MILA Administration Atenolol 100 mg 05/31/20 09:00 06/01/20 09:22 Atenolol 25 Mg Tablet PO 100 mg DAILY MILA Administration Atorvastatin Calcium 80 mg 05/30/20 21:00 05/31/20 21:04 Atorvastatin 40 Mg Tablet PO 80 mg QPM MILA Administration Bupropion HCl 300 mg 05/31/20 09:00 06/01/20 09:35 Bupropion Xl 150 Mg Tablet PO 300 mg DAILY MILA Administration Furosemide 20 mg 05/31/20 13:00 06/01/20 09:23 Furosemide 20 Mg Tablet PO 20 mg DAILY MILA Administration Gabapentin 1,200 mg 05/30/20 21:00 05/31/20 21:04 Gabapentin 400 Mg Capsule PO 1,200 mg QPM MILA Administration Heparin Sodium (Porcine) 5,000 unit 05/30/20 21:00 06/01/20 09:24 Heparin 5,000 Unit/Ml Vial SUBQ 5,000 unit BID MILA Administration Insulin Aspart 2 - 10 unit 05/31/20 12:00 06/01/20 17:04 Insulin Aspart 300 Unit/3 Ml Pen SUBQ 4 unit 0800,1200,1700,2100 MILA Administration Protocol Insulin Glargine 5 unit 05/31/20 08:00 06/01/20 09:22 Insulin Glargine 300 Unit/3 Ml Pen SUBQ 5 unit QDBREAKFAST MILA Administration Insulin Glargine 15 unit 05/31/20 21:00 05/31/20 21:05 Insulin Glargine 300 Unit/3 Ml Pen SUBQ 15 unit QPM MILA Administration Saccharomyces Boulardii 250 mg 06/01/20 08:04 06/01/20 17:04 Saccharomyces Boulardii 250 Mg Capsule PO 250 mg BIDWM MILA Administration Sodium Chloride 10 ml 05/30/20 17:00 06/01/20 17:04 Sodium Chloride Flush 0.9% 10 Ml Syringe IVP 10 ml 0100,0900,1700 MILA Administration Tamsulosin HCl 0.4 mg 05/31/20 09:00 06/01/20 09:24 Tamsulosin 0.4 Mg Capsule PO 0.4 mg DAILY MILA Administration - Lab Result Fish Bone Diagrams: 06/02/20 04:30 06/02/20 04:30 - Additional Planning My Orders: My Active Orders 05/31/20 21:00 Insulin Glargine [Lantus Solostar] 15 unit SUBQ QPM 06/01/20 Social Work Consult [CONS] Routine 06/01/20 08:04 Saccharomyces Boulardii [Florastor] 250 mg PO BIDWM 06/01/20 09:00 Stress Test [Myocardial Perfusion STR/RST] [NM] Routine 06/02/20 05:00 BNP - B-NATRIURETIC PEPTIDE [IAI] DAILYLAB CBC - COMP BLD CT W/AUTO DIFF [HEME] DAILYLAB CMP [COMPREHENSIVE METABOLIC PANEL] [CHEM] DAILYLAB 06/02/20 09:00 Famotidine [Pepcid] 20 mg PO DAILY 06/03/20 05:00 BNP - B-NATRIURETIC PEPTIDE [IAI] DAILYLAB CBC - COMP BLD CT W/AUTO DIFF [HEME] DAILYLAB CMP [COMPREHENSIVE METABOLIC PANEL] [CHEM] DAILYLAB 06/04/20 05:00 BNP - B-NATRIURETIC PEPTIDE [IAI] DAILYLAB CBC - COMP BLD CT W/AUTO DIFF [HEME] DAILYLAB CMP [COMPREHENSIVE METABOLIC PANEL] [CHEM] DAILYLAB 06/05/20 05:00 BNP - B-NATRIURETIC PEPTIDE [IAI] DAILYLAB Subjective - Subjective Patient Reports: Feeling Better Objective Vital Signs: Vital Signs - 24 hr 05/31/20 05/31/20 05/31/20 17:12 19:14 20:06 Temperature 36.5 C Heart Rate [ 59 L Brachial] Respiratory 20 Rate Blood Pressure 99/52 L 92/54 L [Left Brachial artery] Blood Pressure 98/63 102/58 L [Right Brachial artery] O2 Saturation 95 06/01/20 06/01/20 06/01/20 00:36 04:51 07:31 Temperature 37.2 C 36.6 C 36.6 C Heart Rate [ 60 62 58 L Brachial] Respiratory 17 17 20 Rate Blood Pressure 97/59 L 110/69 103/53 L [Left Brachial artery] Blood Pressure [Right Brachial artery] O2 Saturation 94 92 94 06/01/20 12:14 Temperature 36.3 C L Heart Rate [ 51 L Brachial] Respiratory 18 Rate Blood Pressure 98/64 [Left Brachial artery] Blood Pressure [Right Brachial artery] O2 Saturation 100 Oxygen O2 Source Room air I&O (Last 24 Hrs): Intake and Output Totals x24h 05/30/20 05/31/20 06/01/20 23:59 23:59 23:59 Intake Total 1220 5080 100 Output Total 400 250 Balance 1220 4680 -150 General: Alert, Oriented x3, No acute distress HEENT: Atraumatic Neck: Supple Lymphatic: no adenopathy Neuro: Alert, Non Focal, Oriented Times 3 Cardiovascular: Regular rate, Normal S1, Normal S2 Respiratory: Chest non-tender, No respiratory distress Abdomen: Normal bowel sounds, Soft, No tenderness Extremities: Normal pulses - Results Results: Laboratory Results WBC 9.1 x10^3/uL (4.8-10.8) 06/01/20 04:35 RBC 3.25 10^6/uL (4.70-6.10) L 06/01/20 04:35 Hgb 9.4 g/dL (14.0-18.0) L 06/01/20 04:35 Hct 30.1 % (42.0-52.0) L 06/01/20 04:35 MCV 92.6 fL (80.0-94.0) 06/01/20 04:35 MCH 28.9 pg (27.0-31.0) 06/01/20 04:35 MCHC 31.2 g/dL (32.0-36.0) L 06/01/20 04:35 RDW 13.3 % (12.0-15.0) 06/01/20 04:35 Plt Count 174 10^3/uL (130-450) 06/01/20 04:35 MPV 11.0 fL (7.4-11.4) 06/01/20 04:35 Neut # (Auto) 6.1 10^3/uL (1.5-6.6) 06/01/20 04:35 Lymph # (Auto) 1.3 10^3/uL (1.5-3.5) L 06/01/20 04:35 Beauregard # (Auto) 0.7 10^3/uL (0.0-1.0) 06/01/20 04:35 Eos # (Auto) 0.8 10^3/uL (0.0-0.7) H 06/01/20 04:35 Baso # (Auto) 0.1 10^3/uL (0.0-0.1) 06/01/20 04:35 Absolute Nucleated RBC 0.00 x10^3/uL 06/01/20 04:35 Nucleated RBC % 0.0 /100WBC 06/01/20 04:35 D-Dimer 468.0 ng/mL (200.0-255.0) H 05/30/20 14:44 VBG pH 7.409 (7.31-7.41) 05/30/20 11:11 VBG pCO2 39.9 mmHg (41-51) L 05/30/20 11:11 VBG pO2 23.2 mmHg (25-47) L 05/30/20 11:11 VBG HCO3 24.7 mmol/L (23-28) 05/30/20 11:11 VBG Total CO2 25.9 mmol/L (24-29) 05/30/20 11:11 VBG O2 Saturation 45.1 % (60-80) L 05/30/20 11:11 VBG Base Excess 0.1 mmol/L (-2 - +2) 05/30/20 11:11 Sodium 133 mmol/L (135-145) L 06/01/20 04:35 Potassium 4.0 mmol/L (3.5-5.0) 06/01/20 04:35 Chloride 101 mmol/L (101-111) 06/01/20 04:35 Carbon Dioxide 20 mmol/L (21-32) L 06/01/20 04:35 Anion Gap 12.0 (6-13) 06/01/20 04:35 BUN 49 mg/dL (6-20) H 06/01/20 04:35 Creatinine 1.5 mg/dL (0.6-1.2) H 06/01/20 04:35 Estimated GFR (MDRD) 46 (>89) L 06/01/20 04:35 Glucose 173 mg/dL (70-100) H 06/01/20 04:35 POC Whole Bld Glucose 193 mg/dL (70 - 100) H 06/01/20 16:53 Estimat Average Glucose 269 mg/dL (70-100) H 05/31/20 05:15 Hemoglobin A1c % 11.0 % (4.27-6.07) H 05/31/20 05:15 Lactic Acid 1.6 mmol/L (0.5-2.2) 05/30/20 13:31 Calcium 8.2 mg/dL (8.5-10.3) L 06/01/20 04:35 Magnesium 1.8 mg/dL (1.7-2.8) 05/31/20 05:15 Total Bilirubin 1.1 mg/dL (0.2-1.0) H 06/01/20 04:35 AST 23 IU/L (10-42) 06/01/20 04:35 ALT 21 IU/L (10-60) 06/01/20 04:35 Alkaline Phosphatase 93 IU/L (42-121) 06/01/20 04:35 Troponin I High Sens 36.2 ng/L (2.3-19.7) H* 05/30/20 19:59 B-Natriuretic Peptide 1275 pg/mL (5-100) H 06/01/20 04:35 Total Protein 5.6 g/dL (6.7-8.2) L 06/01/20 04:35 Albumin 2.3 g/dL (3.2-5.5) L 06/01/20 04:35 Globulin 3.3 g/dL (2.1-4.2) 06/01/20 04:35 Albumin/Globulin Ratio 0.7 (1.0-2.2) L 06/01/20 04:35 Triglycerides 142 mg/dL (-149) 05/31/20 05:15 Cholesterol 99 mg/dL (-199) 05/31/20 05:15 LDL Cholesterol, Calc 55 mg/dL (-129) 05/31/20 05:15 VLDL Cholesterol 28 mg/dL 05/31/20 05:15 HDL Cholesterol 16 mg/dL (60-) L 05/31/20 05:15 LDL/HDL Ratio 3.4 (<3.6) 05/31/20 05:15 Cholesterol/HDL Ratio 6.2 (<5.0) 05/31/20 05:15 Lipase 91 U/L (22-51) H 05/30/20 10:45 Urine Color YELLOW 05/30/20 11:45 Urine Clarity CLEAR (CLEAR) 05/30/20 11:45 Urine pH 6.0 PH (5.0-7.5) 05/30/20 11:45 Ur Specific Souris 1.020 (1.002-1.030) 05/30/20 11:45 Urine Protein >=300 mg/dL (NEGATIVE) H 05/30/20 11:45 Urine Glucose (UA) 500 mg/dL (NEGATIVE) H 05/30/20 11:45 Urine Ketones NEGATIVE mg/dL (NEGATIVE) 05/30/20 11:45 Urine Occult Blood TRACE-LYSE (NEGATIVE) 05/30/20 11:45 Urine Nitrite NEGATIVE (NEGATIVE) 05/30/20 11:45 Urine Bilirubin NEGATIVE (NEGATIVE) 05/30/20 11:45 Urine Urobilinogen 4 E.U./dL (NORMAL) H 05/30/20 11:45 Ur Leukocyte Esterase NEGATIVE (NEGATIVE) 05/30/20 11:45 Urine RBC 0-5 /HPF (0-5) 05/30/20 11:45 Urine WBC 6-10 /HPF (0-3) H 05/30/20 11:45 Ur Squamous Epith Cells NONE SEEN (<= Few) 05/30/20 11:45 Urine Bacteria None Seen /HPF (None Seen) 05/30/20 11:45 Ur Microscopic Review INDICATED 05/30/20 11:45 Urine Culture Comments INDICATED 05/30/20 11:45 Nasal Adenovirus (PCR) NOT DETECTED 05/30/20 11:45 Nasal B. parapertussis DNA (PCR) NOT DETECTED 05/30/20 11:45 Nasal Coronavir 229E PCR NOT DETECTED 05/30/20 11:45 Nasal Coronavir HKU1 PCR NOT DETECTED 05/30/20 11:45 Nasal Coronavir NL63 PCR NOT DETECTED 05/30/20 11:45 Nasal Coronavir OC43 PCR NOT DETECTED 05/30/20 11:45 Nasal Enterovir/Rhinovir PCR NOT DETECTED 05/30/20 11:45 Nasal Influenza B PCR NOT DETECTED 05/30/20 11:45 Nasal Influenza A PCR NOT DETECTED 05/30/20 11:45 Nasal Parainfluen 1 PCR NOT DETECTED 05/30/20 11:45 Nasal Parainfluen 2 PCR NOT DETECTED 05/30/20 11:45 Nasal Parainfluen 3 PCR NOT DETECTED 05/30/20 11:45 Nasal Parainfluen 4 PCR NOT DETECTED 05/30/20 11:45 Nasal RSV (PCR) NOT DETECTED 05/30/20 11:45 Nasal B.pertussis DNA PCR NOT DETECTED 05/30/20 11:45 Nasal C.pneumoniae (PCR) NOT DETECTED 05/30/20 11:45 Gian Human Metapneumo PCR NOT DETECTED 05/30/20 11:45 Nasal M.pneumoniae (PCR) NOT DETECTED 05/30/20 11:45 Nasal SARS-CoV-2 (PCR) NOT DETECTED 05/30/20 11:45 ABX Reporting Has patient been on IV antibiotics over the past 48 hours?: No Current Medications - Current Medications Current Medications: Active Medications Acetaminophen (Acetaminophen 325 Mg Tablet) 650 mg PO Q4HR PRN PRN Reason: Pain 1 to 4 Hydrocodone Bitart/Acetaminophen (Hydrocod/Acetam 5/325 Mg Tablet) 1 tab PO TID MILA Last Admin: 06/02/20 05:17 Dose: 1 tab Documented by: Aspirin (Aspirin Ec 81 Mg Tablet) 81 mg PO DAILY [facility] Last Admin: 06/02/20 08:02 Dose: 81 mg Documented by: Atorvastatin Calcium (Atorvastatin 40 Mg Tablet) 80 mg PO QPM [facility] Last Admin: 06/01/20 20:58 Dose: 80 mg Documented by: Bupropion HCl (Bupropion Xl 150 Mg Tablet) 300 mg PO DAILY [facility] Last Admin: 06/02/20 08:10 Dose: 300 mg Documented by: Famotidine (Famotidine 20 Mg Tablet) 20 mg PO DAILY [facility] Last Admin: 06/02/20 08:02 Dose: 20 mg Documented by: Furosemide (Furosemide 20 Mg Tablet) 20 mg PO DAILY [facility] Last Admin: 06/02/20 08:02 Dose: 20 mg Documented by: Gabapentin (Gabapentin 400 Mg Capsule) 1,200 mg PO QPM [facility] Last Admin: 06/01/20 21:01 Dose: 1,200 mg Documented by: Heparin Sodium (Porcine) (Heparin 5,000 Unit/Ml Vial) 5,000 unit SUBQ BID [facility] Last Admin: 06/02/20 08:09 Dose: 5,000 unit Documented by: Insulin Aspart (Insulin Aspart 300 Unit/3 Ml Pen) 2 - 10 unit SUBQ 0800,1200,17 00,2100 [facility]; Protocol Last Admin: 06/02/20 08:11 Dose: 2 unit Documented by: Insulin Glargine (Insulin Glargine 300 Unit/3 Ml Pen) 15 unit SUBQ QPM [facility] Last Admin: 06/01/20 20:57 Dose: 15 unit Documented by: Insulin Glargine (Insulin Glargine 300 Unit/3 Ml Pen) 10 unit SUBQ QDBREAKFAST [facility] Last Admin: 06/02/20 08:00 Dose: 10 unit Documented by: Metoprolol Succinate (Metoprolol Succinate 50 Mg Tablet) 100 mg PO DAILY [facility] Last Admin: 06/02/20 08:10 Dose: 100 mg Documented by: Ondansetron HCl (Ondansetron 4 Mg/2 Ml Vial) 4 mg IVP Q6HR PRN PRN Reason: Nausea / Vomiting Saccharomyces Boulardii (Saccharomyces Boulardii 250 Mg Capsule) 250 mg PO BIDWM [facility] Last Admin: 06/02/20 08:03 Dose: 250 mg Documented by: Sodium Chloride (Sodium Chloride Flush 0.9% 10 Ml Syringe) 10 ml IVP PRN PRN PRN Reason: NEEDED PER PROVIDER ORDERS Sodium Chloride (Sodium Chloride Flush 0.9% 10 Ml Syringe) 10 ml IVP 0100,0900,1700 [facility] Last Admin: 06/02/20 08:11 Dose: 10 ml Documented by: Tamsulosin HCl (Tamsulosin 0.4 Mg Capsule) 0.4 mg PO DAILY [facility] Last Admin: 06/02/20 08:02 Dose: 0.4 mg Documented by: Throat Lozenges (Benzocaine/Menthol Lozenge) 1 lozenge MM Q2HR PRN PRN Reason: Throat pain Amlodipine Besylate [Norvasc] 2.5 mg PO DAILY 05/30/20 Aspirin [Aspirin EC] 81 mg PO DAILY 05/30/20 Atenolol [Tenormin] 100 mg PO DAILY 05/30/20 Atorvastatin Calcium [Lipitor] 80 mg PO QPM 05/30/20 Bupropion HCl [Wellbutrin Xl] 300 mg PO DAILY 05/30/20 Cholecalciferol [Vitamin D3] 50 mcg PO DAILY 05/30/20 Furosemide [Lasix] 20 mg PO DAILY 05/30/20 Gabapentin [Neurontin] 1,200 mg PO QPM 05/30/20 Glipizide 10 mg PO BID 05/30/20 HYDROcod/ACETAM 5/325 [[place] 5/325] 1 tab PO TID 05/30/20 Loratadine [Claritin] 10 mg PO DAILY 05/30/20 Losartan Potassium 25 mg PO DAILY 05/30/20 Multivitamin 1 tab PO DAILY 05/30/20 Sildenafil Citrate [Viagra] 50 mg PO PRN PRN 05/30/20 metFORMIN [Glucophage] 1,000 mg PO BID 05/30/20
--- NOTE | 2020-06-01 18:22 | Nuclear Medicine Report ---
PROCEDURE: Rest and pharmacological myocardial perfusion SPECT with gated imaging and ejection fraction INDICATIONS: chest pressure and SOB RADIOPHARMACEUTICAL: 8.2 mCi Tc-99m Myoview IV at rest and 25.9 mCi Tc-99m Myoview IV at peak exerci se. [id number] was performed. TECHNIQUE: Radiopharmaceutical was injected at peak stress test, and also at rest. SPECT images wer e obtained. SPECT myocardial perfusion images were displayed in short axis, horizontal long axis, an d vertical long axis views. Gated images were reviewed using Auto[employer] software. COMPARISON: None available. FINDINGS: Raw data: There is good myocardial labeling by radiotracer. No significant motion artifacts. Lung- to-heart ratio is 0.38 (normal is less than 0.38 for tetrafosmin tracer). Left ventricle function: Gated images demonstrate normal left ventricle wall thickening. No segment al wall motion abnormality. No transient ischemic dilation; TID is 1.05 (normal less than 1.3). The left ventricle resting end-diastolic volume is normal. Left ventricle stress ejection fraction is 6 5%; normal values are above 45%. Myocardial perfusion: There is normal distribution of activity in the left and right ventricular milagros cardium. No fixed or reversible perfusion defects. Note is made of mild apical thinning. IMPRESSION: 1. Normal myocardial perfusion images. 2. Normal left ventricular volume and systolic function. 3. Please correlate with stress EKG report. PQRS ATTESTATIONS: Measure 322 - Is this imaging test primarily performed on a low-risk surgery patient for preoperative evaluation within 30 days preceding their low-risk non-cardiac surgery? Low-risk surgery is defined as cardiac or myocardial infarction less than 1%, including (but not limited to) endoscopic pr ocedures, superficial procedures, cataract surgery, and excisional breast surgery: Answer: No Measure 323 - Is this imaging test performed primarily for the monitoring of an asymptomatic patient who had percutaneous coronary intervention on the visit date or within 2 years of the visit date? An swer: No Measure 324 - Is this imaging test performed primarily for the initial detection and risk assessment on an asymptomatic, low coronary heart disease patient? Low CHD risk definition = clinicians should consider the maximum number of available patient factors used to estimate risk based on [place] (A TP III criteria), typically age, gender, diabetes, smoking status, and use of blood pressure medicati on, and integrate age appropriate estimates for missing elements, such as LDL or standard blood press ure. Answer: No Reviewed by: Sayda Sánchez MD on 06/01/2020 6:20 PM PST Approved by: Sayda Sánchez MD on 06/01/2020 6:20 PM PST Station ID: [id number]
[2020-06-01] MEDS: ATORVASTATIN 40 MG TABLET PO SCH (20:58)
[2020-06-01] MEDS: GABAPENTIN 400 MG CAPSULE PO SCH (21:01)
--- NOTE | 2020-06-01 21:37 | CARDIAC PROCEDURE NOTE ---
DATE OF SERVICE: 06/01/2020 Physician: Dipika Miramontes MD INDICATION: Chest pain and shortness of breath. CARDIAC RISK FACTORS: Male gender, diabetes, hypertension, unknown cholesterol status. DESCRIPTION OF PROCEDURE: After signing informed consent, the patient underwent a Lexiscan pharmaceutical stress test with nuclear myocardial perfusion imaging. RESTING HEART RATE: 50. PEAK HEART RATE: 66. RESTING BLOOD PRESSURE: 110/76. PEAK BLOOD PRESSURE: 110/76. Lexiscan was infused per protocol. The patient had brief shortness of breath and brief chest pressure, resolved in less than 1 minute. He had no other symptoms. Oxygen saturation was 96% to 98% on room air throughout the test. EKG AT REST: Sinus bradycardia, rate 50, LVH voltage, strain pattern in leads V2 through V6 and there is J-point elevation in V2 and V3. EKG AT PEAK: No new ST-segment or T-wave changes develop. SUMMARY 1. Abnormal resting EKG. 2. No significant symptoms develop with Lexiscan injection. 3. Cannot comment on ischemic changes by EKG criteria, since his baseline EKG has ST abnormalities. 4. Nuclear images were reported separately and showed: No perfusion abnormality. IMPRESSION: Normal stress test. TD: 06/01/2020 19:48 BYRON
[2020-06-02 04:51] LABS: BASOPHILS % (AUTO) 0.5 %; EOSINOPHILS # (AUTO) 0.8 10^3/uL (0.0-0.7); EOSINOPHILS % (AUTO) 9.3 %; HGB - HEMOGLOBIN 9.2 g/dL (14.0-18.0); LYMPHOCYTES # (AUTO) 1.2 10^3/uL (1.5-3.5); LYMPHOCYTES % (AUTO) 14.8 %; MEAN CORPUSCULAR HEMOGLOBIN 29.3 pg (27.0-31.0); MEAN CORPUSCULAR HGB CONC 31.2 g/dL (32.0-36.0); MEAN CORPUSCULAR VOLUME 93.9 fL (80.0-94.0); MONOCYTES # (AUTO) 0.8 10^3/uL (0.0-1.0); MONOCYTES % (AUTO) 9.3 %; NEUTROPHILS # (AUTO) 5.2 10^3/uL (1.5-6.6); NEUTROPHILS % (AUTO) 63.5 %; PLT - PLATELET COUNT 196 10^3/uL (130-450); RED BLOOD COUNT 3.14 10^6/uL (4.70-6.10); RED CELL DISTRIBUTION WIDTH 13.4 % (12.0-15.0); WHITE BLOOD COUNT 8.2 x10^3/uL (4.8-10.8)
[2020-06-02 05:06] LABS: ALBUMIN 2.3 g/dL (3.2-5.5); ALBUMIN/GLOBULIN RATIO 0.7 (1.0-2.2); BILIRUBIN,TOTAL 0.5 mg/dL (0.2-1.0); CALCIUM 8.2 mg/dL (8.5-10.3); CREATININE 1.2 mg/dL (0.6-1.2); TOTAL PROTEIN 5.6 g/dL (6.7-8.2)
[2020-06-02] MEDS: HYDROcod/ACETAM 5/325 MG TABLET PO SCH ×2 (05:17→13:12)
[2020-06-02] MEDS ORDERED: INSULIN GLARGINE 300 UNIT/3 ML PEN SUBQ SCH (08:00)
[2020-06-02] MEDS ORDERED: POTASSIUM CHLORIDE 20 MEQ TABLET PO ONE (08:00)
[2020-06-02] MEDS: ASPIRIN EC 81 MG TABLET PO SCH (08:02)
[2020-06-02] MEDS: FUROSEMIDE 20 MG TABLET PO SCH (08:02)
[2020-06-02] MEDS: TAMSULOSIN 0.4 MG CAPSULE PO SCH (08:02)
[2020-06-02] MEDS: SACCHAROMYCES BOULARDII 250 MG CAPSULE PO SCH ×2 (08:03→16:23)
[2020-06-02] MEDS: HEPARIN 5,000 UNIT/ML VIAL SUBQ SCH (08:09)
[2020-06-02] MEDS: buPROPion XL 150 MG TABLET PO SCH (08:10)
[2020-06-02] MEDS: SODIUM CHLORIDE FLUSH 0.9% 10 ML SYRINGE IVP SCH ×2 (08:11→16:23)
[2020-06-02] MEDS: INSULIN ASPART 300 UNIT/3 ML PEN SUBQ SCH ×3 (08:11→16:23)
[2020-06-02 08:26] LABS: PHOSPHORUS 4.6 mg/dL (2.5-4.6)
[2020-06-02] MEDS ORDERED: FAMOTIDINE 20 MG TABLET PO SCH (09:00)
[2020-06-02] MEDS ORDERED: METOPROLOL SUCCINATE 50 MG TABLET PO SCH ×2 (09:00)
--- NOTE | 2020-06-02 15:53 | Discharge Plan ---
Discharge Plan Problem Reviewed?: Yes Disposition: Home Health Service Condition: Stable Prescriptions: Tamsulosin [Flomax] 0.4 mg PO DAILY #30 capsule Blood Sugar Diagnostic [Glucometer Strips] 1 each QID #100 strip Lancets 1 each QID #100 each Insulin Glargine [Lantus Solostar] 20 unit SUBQ QDBREAKFAST #5 pen Insulin Aspart [NovoLOG] 2 - 10 unit SUBQ 0800,1200,1700,2100 #5 pen Metoprolol Succinate [Toprol Xl] 100 mg PO DAILY #30 tablet Diet: Diabetic Activity Restrictions: Activity as Tolerated Shower Restrictions: No (fall precaution) Instruction Topics: Log Blood Sugar, Diabetes Heart Disease, Diabetes Automotive Engineering Technician Complications, Hyperglycemia, Hypoglycemia, Blood Sugar Check, Diabetes Type 2 Oral Meds, Blood Sugar Manage Exercise, Heart Murmur Ch, Heart Murmur, ED Murmur Functional Ch Health Concerns: uncontrolled diabetes, heart murmur and pulmonary hypertension Plan of Treatment: you are prescribed insulin, you have glucometer at home, you have extensive education in the hospital for how to safely use insulin. please followup the education safely use insulin, and prevention of hypoglycemia at the home, advise you followup with your PCP in one week to continue management of your diabetes. You are also arranged home health RN and social media job titles service to help you. you have heart murmur, IHSS and pulmonary hypertension, advise you followup with vehicle return associate as out-pt Care Goals: stabilization and improvement of your medical conditions Assessment: discussed the care plan with you, you understood. Additional Instructions or Follow Up instructions: you may followup with your PCP in one week, followup with vehicle return associate as out- pt. should your symptoms return or worsen, you may present ER or call 911 for help. Follow-Up Care: Home Health - RN No Smoking: If you smoke, Please STOP! Call for help.
--- NOTE | 2020-06-02 16:36 | DISCHARGE SUMMARY ---
Discharge Summary Admit Date: 05/30/20 Discharge Date: 06/02/20 Discharging Provider: Ramon Malave Condition at Discharge: Stable Discharge Disposition: Home Health Service Discharge Facility Name: home - DIAGNOSES Discharge Diagnoses with Status of Each Condition: (1) Chest pressure Patient report his symptoms is resolved, No chest pain, no chest pressure, no palpation. his stress test is negative. continue home aspirin and new meds Metoprolol. Pt has home meds Atenolol is changed to Metoprolol with same dosage. pt tolerate well for new meds. (2) Heart murmur Patient had aloud murmur. ECHO reveals reserved EF with Moderate concentric left ventricular hypertrophy, There is moderate to severe aortic sclerosis, aortic valve area could not be calculated due to left ventricular outflow tract obstruction. Moderate mitral regurgitation, Severe abnormal right heart pressure, RVSP at the rest is 104 mmHg. advise pt followup with [facility] for further management. pt had desat of O2 study with RT on today. pt walked 400 ft without cardiac or respiratory distress. pt does not need home oxygen. (3)IHSS ECHO reveals reserved EF with Moderate concentric left ventricular hypertrophy, left Ventricular outflow track gradient without valsalva Max 56mmHG. continue home Metoprolol, advise pt followup with [facility] for further management. (4)pulmonary hypertension ECHO reveal RVSP 104mmHG, severe Pulmonary hypertension, resume home and new meds Metoprolol, followup with [facility]ather apprent[facility] (5) CKD great improved today. creatinine is 1.2. (6) Diabetes uncontrolled Patient Glucose level was over 400 in the admission. Patient's A1c is 11 and is poor controlled. patient had glucometer in home but he did not use it. pt had extensive diabetes education in the hospital. pt is prescribed Lantus and short acting Novolog slide scale( pt had insulin prescribe with my hand writing of slide scale), strip, lancet. pt had extensive educations and training by RN for how to check glucose level and injection of insulin, how to prevent hypoglycemia. I also personally teach pt how to prevention of hypoglycemia and hyperglycemia. pt verbally state he understood and will followup all instructions. pt is [facility]% [employer]. [employer] worker tried all efforts to help pt get insulin meds on time. I e-prescribed to pt's pharmacy store and print with hand writing for his prescribes as well. pt state he will buy insulin by his own payment then seek reimbursement from his insurance. I advise he need on time insulin and check glucose level, and use slide scale, and advise pt if he can get insulin, and his symptoms returns or worsen, you may return to ER or call 911. (7) HTN (hypertension) stable (8) Hyponatremia resolved. (9)BPH Patient reported his urination has hesitance, frequency, start Flomax, followup with urologist as out-pt if continue clinic needed. (9)medical non-compliance as the above, pt has poor controlled diabetes, pt was medical non-compliance. pt was educated importance to do medical compliance. pt state he will do medical compliance. - HPI History of Present Illness: This is a 74-years old male with a past medical history of CHF, hypertension, heart murmur, diabetic 2, BPH, CKD, chronic vision loss, present ER complain of increased weakness, chest pain and urination burning sensation. Patient reported he went to see [place] physician [place] go to the hospital. Patient reported he still feel some urination burning sensation even after the treated with antibiotics for his UTI.Patient also report he feel chest pressure, and feel shortness of breathing. Pt report after having a shingles shot about one week ago, you felt weakness, loss of appetite, loss of strength in the home and laying in the bed not much drinking and eating. He denies fever, chill, Abdominal pain, nausea, vomiting, diarrhea. Routine laboratory tests that show patient had elevated WBC at 15, elevated troponin 49, Repeat troponin 44, Creatinine 1.6, Sodium 131, Glucose is over 400. Chest x-ray show mild interstitial prominence versus mild pulmonary edema and no sign of cardiomegaly. Discussed the care goal with the patient, patient requested full code - HOSPITAL COURSE Hospital Course: pt was admitted for multiple complain of increased weakness, chest pain and urination burning sensation, chest pressure, and feel shortness of breathing, pt also was found dehydration with acute on chronic kidney disease, pt was found to have very poor controlled diabetes and medical non-compliance as well. pt had slight elevated troponin but abnormal EKG although pt has no previous EKG compared in [facility], but pt's stress test in hospital which was normal. pt denies any chest pain and chest pressure any more in the hospital. pt walked with RT 400 ft without distress as well. The detail hospital course is as the discharge diagnosis as the above. - ALLERGIES Allergies/Adverse Reactions: Allergies Allergy/AdvReac Type Severity Reaction Status Date / Time Penicillins Allergy Rash Verified 05/30/20 10:31 - MEDICATIONS Home Medications: Ambulatory Orders Medication Instructions Recorded Confirmed Amlodipine Besylate [Norvasc] 2.5 mg PO DAILY 05/30/20 05/30/20 Aspirin [Aspirin EC] 81 mg PO DAILY 05/30/20 05/30/20 Atorvastatin Calcium [Lipitor] 80 mg PO QPM 05/30/20 05/30/20 Bupropion HCl [Wellbutrin Xl] 300 mg PO DAILY 05/30/20 05/30/20 Cholecalciferol [Vitamin D3] 50 mcg PO DAILY 05/30/20 05/30/20 Furosemide [Lasix] 20 mg PO DAILY 05/30/20 05/30/20 Gabapentin [Neurontin] 1,200 mg PO QPM 05/30/20 05/30/20 HYDROcod/ACETAM 5/325 [Cresson 5/325] 1 tab PO TID 05/30/20 05/30/20 Loratadine [Claritin] 10 mg PO DAILY 05/30/20 05/30/20 Losartan Potassium 25 mg PO DAILY 05/30/20 05/30/20 Multivitamin 1 tab PO DAILY 05/30/20 05/30/20 Sildenafil Citrate [Viagra] 50 mg PO PRN PRN 05/30/20 05/30/20 metFORMIN [Glucophage] 1,000 mg PO BID 05/30/20 05/30/20 Blood Sugar Diagnostic [Glucometer 1 each QID #100 strip 06/02/20 Strips] Insulin Aspart [NovoLOG] 2 - 10 unit SUBQ 06/02/20 0800,1200,1700,2100 #5 pen Insulin Glargine [Lantus Solostar] 20 unit SUBQ QDBREAKFAST #5 pen 06/02/20 Lancets 1 each QID #100 each 06/02/20 Metoprolol Succinate [Toprol Xl] 100 mg PO DAILY #30 tablet 06/02/20 Tamsulosin [Flomax] 0.4 mg PO DAILY #30 capsule 06/02/20 - PHYSICAL EXAM AT DISCHARGE General Appearance: positive: No acute distress, Alert. negative: Lethargic Eyes Bilateral: positive: Normal inspection, PERRL, No lid inflammation ENT: positive: ENT inspection nml, No signs of dehydration. negative: Purulent nasal drainage Neck: positive: Nml inspection, Thyroid nml, Trachea midline. negative: Thyromegaly, Tracheal deviation Respiratory: positive: Chest non-tender, No respiratory distress. negative: Wheezes, Rales, Rhonchi Cardiovascular: positive: Regular rate & rhythm, Systolic murmur, Diastolic murmur. negative: No murmur, Tachycardia, Bradycardia Peripheral Pulses: positive: 2+ Abdomen: positive: Non-tender, No organomegaly, Nml bowel sounds, No distention. negative: Tenderness, Guarding, Rebound Back: positive: Nml inspection. negative: CVA tenderness (R), CVA tenderness (L) Skin: positive: Color nml, No rash, Warm, Dry. negative: Cyanosis, Diaphoresis, Pallor Extremities: positive: Non-tender, Full ROM, Nml appearance. negative: Calf tenderness Neurologic/Psychiatric: positive: Oriented x3, Motor nml, Sensation nml, Mood/affect nml. negative: Weakness, Sensory loss, Facial droop, Slurred/abnml speech, Depressed mood/affect - LABS Result Diagrams: 06/02/20 04:30 06/02/20 04:30 - FOLLOW UP Follow Up: you are prescribed insulin, you have glucometer at home, you have extensive education in the hospital for how to safely use insulin. please followup the education safely use insulin, and prevention of hypoglycemia at the home, advise you followup with your PCP in one week to continue management of your diabetes. You are also arranged home health RN and [employer] school social science teacher service to help you. you have heart murmur, IHSS and pulmonary hypertension, advise you followup with [facility] as out-pt you may followup with your PCP in one week, followup with [facility] as out- pt. should your symptoms return or worsen, you may present ER or call 911 for help. - TIME SPENT Time Spent in Discharge (Minutes): 30
[2020-06-02 18:53] VITALS: BP 124/64
== END 2020-06-02 18:30 | disposition home health service (06) | DRG 313 ==
LOC: ED 10:13 → MS2 14:20
PROVIDERS: ADMIT Nurse Practitioner Gerontology; ATTEND Nurse Practitioner Gerontology
DX: R07.89 Other chest pain (principal); N17.9 Acute kidney failure, unspecified; E87.1 Hypo-osmolality and hyponatremia; N39.0 Urinary tract infection, site not specified; R01.1 Cardiac murmur, unspecified; I13.10 Hypertensive heart and chronic kidney disease without heart failure, with stage 1 through stage 4 chronic kidney disease, or unspecified chronic kidney disease; I34.0 Nonrheumatic mitral (valve) insufficiency; I27.20 Pulmonary hypertension, unspecified; E11.22 Type 2 diabetes mellitus with diabetic chronic kidney disease; E11.65 Type 2 diabetes mellitus with hyperglycemia; I12.9 Hypertensive chronic kidney disease with stage 1 through stage 4 chronic kidney disease, or unspecified chronic kidney disease; N18.9 Chronic kidney disease, unspecified; E86.0 Dehydration; N40.1 Benign prostatic hyperplasia with lower urinary tract symptoms; R35.0 Frequency of micturition; R39.11 Hesitancy of micturition; T38.3X6A Underdosing of insulin and oral hypoglycemic [antidiabetic] drugs, initial encounter; Z91.128 Patient's intentional underdosing of medication regimen for other reason; R77.8 Other specified abnormalities of plasma proteins; H54.7 Unspecified visual loss; E86.1 Hypovolemia; Z20.828 Contact with and (suspected) exposure to other viral communicable diseases
CPT/HCPCS: 0202U; 36415; 71045; 78452; 80053; 80061; 81001; 82803; 83036; 83605; 83690; 83735; 83880; 84100; 84484; 85025; 85379; 87040; 87086; 93005; 93017; 93306; 96361; 96365; 99284; 99285; A9270; A9500; J1815; J2785; J7120; 81003; 83721

== ENCOUNTER 2023-04-17 08:20 | Outpatient (CLI) | payer MEDICARE, OTHER | END 2023-04-17 08:21 | disposition EMS.NT | LOC: EMS 08:20 | DX: Z04.1 Encounter for examination and observation following transport accident (principal) ==